=== PATIENT | female | born 1995 | race Caucasian/White ===

== ENCOUNTER 2019-01-31 18:25 | Inpatient (IN) | payer OTHER ==
[2019-01-31] MEDS ORDERED: Sodium Chloride 0.9% 10 ML Syringe FLUSH PRN (18:49)
[2019-01-31] MEDS ORDERED: Nalbuphine 10 MG/1 ML Vial IVPUSH PRN (18:49)
[2019-01-31] MEDS ORDERED: Misoprostol 100 MCG Tab VAG PRN (18:49)
--- NOTE | 2019-01-31 18:52 | PCM.LDHP ---
L&D History of Present Illness - General Date of Service: 01/31/19 Admit Problem/Dx: Patient Status Order with Admit Dx/Problem 01/31/19 18:49 Patient Status [ADT] Routine Admission Diagnosis/Problem Admission Diagnosis/Problem Post term Source of Information: Patient History Limitations: Reports: No Limitations - History of Present Illness Introduction:: Patient is a 23 y/o at 40 4/7 wks presents for IOL for dates. Doing well. Notes good FM. No contractions or signs of labor. 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 Para: 0 LMP (Approximate): Neurological History: Reports: Migraines Psychiatric History: Reports: ADD, Anxiety, Depression - Infectious Disease History Infectious Disease History: Reports: Other (See Below) (History of chlamydia and gonorrhea) - Past Surgical History HEENT Surgical History: Reports: Adenoidectomy, Tonsillectomy Musculoskeletal Surgical History: Reports: Ganglion Cyst, Other (See Below) ( hammer toe procedure) Social & Family History - Tobacco Use Smoking Status *Q: Former Smoker - Alcohol Use Alcohol Use History: No - Recreational Drug Use Recreational Drug Use: Yes Recreational Drug Type: Reports: Marijuana/Hashish, Methamphetamine H&P Review of Systems - Review of Systems: Review Of Systems: See Below General: Reports: No Symptoms Pulmonary: Reports: No Symptoms Cardiovascular: Reports: No Symptoms Gastrointestinal: Reports: No Symptoms Genitourinary: Reports: No Symptoms Musculoskeletal: Reports: No Symptoms Psychiatric: Reports: No Symptoms Neurological: Reports: No Symptoms L&D Exam - Exam Exam: See Below - OB Specific Contraction Intensity: Irritability Movement: Active Heart Tones: Present Heart Tones per Min: 140 Heart Rate (FHR) Variability: Moderate (6-25 bmp) Presentation: Vertex - Shultz Score Shultz Score Cervix Position: Posterior Shultz Score Consistency: Soft Shultz Score Effacement: 31-50% Shultz Score Dilation: Closed Shultz Score 's Station: -3 Shultz Score Total: 3 - Exam General: Alert, Oriented, Cooperative Lungs: Clear to Auscultation, Normal Respiratory Effort Cardiovascular: Regular Rate, Regular Rhythm GI/Abdominal Exam: Soft, Non-Tender Genitourinary: Normal external exam Extremities: Normal Inspection Skin: Warm, Dry, Intact - Patient Data Result Diagrams: 01/31/19 19:00 - Problem List (1) 40 weeks gestation of SNOMED Code(s): 87510973 ICD Code: Z3A.40 - 40 WEEKS GESTATION OF Status: Acute Current Visit: Yes (2) GBS (group B Streptococcus carrier), +RV culture, currently SNOMED Code(s): 5935759013254, 100983689, 4503399528617 ICD Code: O99.820 - STREPTOCOCCUS B CARRIER STATE COMPLICATING Status: Acute Current Visit: Yes (3) Methamphetamine abuse SNOMED Code(s): 680345163 ICD Code: F15.10 - OTHER STIMULANT ABUSE, UNCOMPLICATED Status: Acute Current Visit: Yes (4) Imprisonment and other incarceration SNOMED Code(s): 11718218 ICD Code: Z65.1 - IMPRISONMENT AND OTHER INCARCERATION Status: Acute Current Visit: Yes Problem List Initiated/Reviewed/Updated: Yes Orders Last 24hrs: Active Orders 24 hr Category Date Time Status Patient Status [ADT] Routine ADT 01/31/19 18:49 Ordered Activity as Tolerated [RC] PFP Care 01/31/19 18:49 Ordered Communication Order [RC] ASDIRECTED Care 01/31/19 18:49 Ordered Communication Order [RC] ASDIRECTED Care 01/31/19 18:49 Ordered Communication Order [RC] ASDIRECTED Care 01/31/19 18:49 Ordered Communication Order [RC] ASDIRECTED Care 01/31/19 18:49 Ordered Monitoring [RC] INTERMITTENT Care 01/31/19 18:49 Ordered Non Stress Test [RC] PER UNIT ROUTINE Care 01/31/19 18:49 Ordered Notify Provider [RC] ASDIRECTED Care 01/31/19 18:49 Ordered Notify Provider [RC] PRN Care 01/31/19 18:49 Ordered Peripheral IV Care [RC] . DIRECTED Care 01/31/19 18:50 Ordered Vaginal Exam [RC] ASDIRECTED Care 01/31/19 18:49 Ordered Vital Signs [RC] ASDIRECTED Care 01/31/19 18:49 Ordered Vital Signs [RC] PER UNIT ROUTINE Care 01/31/19 18:49 Ordered Regular Diet [DIET] Diet 01/31/19 Dinner Ordered CBC W/O DIFF,HEMOGRAM [HEME] Routine Lab 01/31/19 18:49 Ordered RAPID PLASMA REAGIN,RPR [CHEM] Routine Lab 01/31/19 18:49 Ordered TYPE AND SCREEN [BBK] Routine Lab 01/31/19 18:49 Ordered Lactated Ringers [Ringers, Lactated] 1,000 ml Med 01/31/19 19:00 Ordered IV ASDIRECTED Nalbuphine [Nubain] Med 01/31/19 18:49 Ordered 10 mg IVPUSH Q2H PRN Oxytocin/Lactated Ringers [Pitocin in LR 10 Units/1,000 Med 01/31/19 19:00 Ordered ML] 10 unit in 1,000 ml IV .CONTINUOUS Oxytocin/Lactated Ringers [Pitocin in LR 10 Units/1,000 Med 01/31/19 19:00 Ordered ML] 10 unit in 1,000 ml IV TITRATE Penicillin G Potassium [Pfizerpen] 2.5 millunits Med 02/01/19 07:00 Ordered Sodium Chloride 0.9% [Normal Saline] 100 ml IV Q4H Penicillin G Potassium [Pfizerpen] 5 millunits Med 02/01/19 03:00 Ordered Sodium Chloride 0.9% [Normal Saline] 100 ml IV ONETIME Sodium Chloride 0.9% [Saline Flush] Med 01/31/19 18:49 Ordered 10 ml FLUSH ASDIRECTED PRN miSOPROStol [Cytotec] Med 01/31/19 18:49 Ordered 25 mcg VAG Q4H PRN Electronic Heart Tones Internal [WOMSER] Per Unit Oth 01/31/19 18:49 Ordered Routine Peripheral IV Insertion Adult [OM.PC] Routine Oth 01/31/19 18:49 Ordered Resuscitation Status Routine Resus Stat 01/31/19 18:49 Ordered Assessment/Plan Comment:: 23 y/o at 40 4/7 wks presents for IOL for dates * Labs * Cytotec and luna bulb for IOL. Will switch to pitocin / AROM when able * GBS positive, will start PCN when more active * Incarcerated for drug abuse. UDS on admission. Collect cord segment after delivery * Pain management per patient preference * Anticipate
[2019-01-31] MEDS ORDERED: Oxytocin/Lactated Ringers 10 UNIT/1,000 ML BAG IV SCH ×2 (19:00)
[2019-01-31] MEDS ORDERED: Misoprostol 25 MCG (1/4 of 100 MCG) Tab ONE (19:02)
[2019-01-31] MEDS: Misoprostol 25 MCG (1/4 of 100 MCG) Tab VAG SCH ×2 (19:08→23:10)
[2019-01-31] MEDS ORDERED: Benzocaine 20% Dental Gel 30 GM Jar MUCMEM PRN (20:47)
[2019-01-31] MEDS: Acetaminophen 325 MG Tab PO PRN (21:03)
[2019-02-01] MEDS ORDERED: Bupivacaine 0.25% 10 ML SDV ONE
[2019-02-01] MEDS ORDERED: Penicillin G Potassium 5 MILLUNITS in Sodium Chloride 0.9% 100 ML IV SCH (03:00)
[2019-02-01] MEDS: Misoprostol 25 MCG (1/4 of 100 MCG) Tab VAG SCH (03:27)
[2019-02-01] MEDS: Lactated Ringers 1,000 ML IV SCH ×5 (03:56→18:08)
--- NOTE | 2019-02-01 06:42 | PCM.PNLD ---
Labor Progress Note - VS & Meds Vital Signs: Last Vital Signs Temp 37.4 C 01/31/19 19:30 Pulse 98 01/31/19 19:30 Resp 16 01/31/19 19:30 BP 139/89 01/31/19 19:30 Pulse Ox 97 01/31/19 19:30 Active Medications: Current Medications Acetaminophen (Tylenol) 650 mg PO Q4H PRN PRN Reason: Pain Last Admin: 01/31/19 21:03 Dose: 650 mg Benzocaine (Hurricaine 20% Gel) 0 gm MUCMEM ASDIRECTED PRN PRN Reason: toothache Last Admin: 01/31/19 21:21 Dose: 1 applic Lactated Ringer's (Ringers, Lactated) 1,000 mls @ 40 mls/hr IV ASDIRECTED SONIA Last Admin: 02/01/19 03:56 Dose: 40 mls/hr Oxytocin/Lactated Ringer's (Pitocin In Lr 10 Units/1,000 Ml) 10 unit in 1,000 mls @ 12 mls/hr IV TITRATE SONIA; Protocol Last Titration: 02/01/19 05:25 Dose: 8 munits/min, 48 mls/hr Oxytocin/Lactated Ringer's (Pitocin In Lr 10 Units/1,000 Ml) 10 unit in 1,000 mls @ 500 mls/hr IV .CONTINUOUS SONIA Penicillin G Potassium 2.5 (millunits/ Sodium Chloride) 100 mls @ 55 mls/hr IV Q4H SONIA Nalbuphine HCl (Nubain) 10 mg IVPUSH Q2H PRN PRN Reason: Pain Sodium Chloride (Saline Flush) 10 ml FLUSH ASDIRECTED PRN PRN Reason: Keep Vein Open Discontinued Medications Penicillin G Potassium 5 (millunits/ Sodium Chloride) 100 mls @ 55 mls/hr IV ONETIME SONIA Last Admin: 02/01/19 03:56 Dose: 55 mls/hr Misoprostol (Cytotec) Confirm Administered Dose 25 mcg .ROUTE .STK-MED ONE Stop: 01/31/19 19:03 Last Admin: 01/31/19 22:58 Dose: Not Given Misoprostol (Cytotec) 25 mcg VAG Q4H SONIA Stop: 02/01/19 03:01 Last Admin: 02/01/19 03:27 Dose: Not Given - Uterine Contractions Uterine Monitoring Mode: External [place] Contraction Intensity: Mild to Moderate - Monitoring Monitor Mode: External Ultrasound Heart Rate (FHR) Baseline: 135 Heart Rate (FHR) Variability: Moderate (6-25 bmp) Accelerations: Present, 15x15 Decelerations: None Strip Review: Category I - Vaginal Exam Dilation (cm): 3-4 Effacement (Percent): 50 Station: -2 Cervical Position: Midposition - Labor Progress (Free Text) Labor Progress: Doing well. S/p 2 doses of cytotec. Barr bulb out around 0300. Pitocin at 10. PCN previously started. AROM performed with release of clear fluid. Continue present management
[2019-02-01] MEDS ORDERED: Penicillin G Potassium 2.5 MILLUNITS in Sodium Chloride 0.9% 100 ML IV SCH (07:00)
[2019-02-01] MEDS ORDERED: diphenhydrAMINE 50 MG/ML SDV IVPUSH PRN ×2 (07:58→20:40)
[2019-02-01] MEDS ORDERED: ePHEDrine 50 MG/ML SDV IVPUSH PRN (07:58)
[2019-02-01] MEDS ORDERED: fentaNYL 100 MCG/2 ML SDV EPIDUR PRN (07:58)
[2019-02-01] MEDS ORDERED: Bupivacaine/fentaNYL/NS 100 ML Bag EPIDUR SCH (08:00)
[2019-02-01] MEDS: Penicillin G Potassium 2.5 MILLUNITS in Sodium Chloride 0.9% 100 ML IV SCH ×3 (08:20→16:54)
--- NOTE | 2019-02-01 09:42 | PCM.PREANE ---
Preanesthetic Assessment - Anesthesia/Transfusion/Family Hx Anesthesia History: Prior Anesthesia Without Reaction Family History of Anesthesia Reaction: No Transfusion History: No Prior Transfusion(s) - Review of Systems General: Fatigue Pulmonary: No Symptoms Cardiovascular: No Symptoms Gastrointestinal: Abdominal Pain (labor) Neurological: No Symptoms Other: Reports: None - Physical Assessment Vital Signs: Last Vital Signs Temp 37.4 C 01/31/19 19:30 Pulse 98 01/31/19 19:30 Resp 16 01/31/19 19:30 BP 139/89 01/31/19 19:30 Pulse Ox 97 01/31/19 19:30 Height: 1.6 m Weight: 93.44 kg ASA Class: 2 Mental Status: Alert & Oriented x3 Airway Class: Mallampati = 1 Dentition: Reports: Normal Dentition Thyro-Mental Finger Breadths: 3 Mouth Opening Finger Breadths: 3 ROM/Head Extension: Full Lungs: Clear to Auscultation, Normal Respiratory Effort Cardiovascular: Regular Rate, Regular Rhythm - Lab Values: Laboratory Last Values WBC 10.78 K/mm3 (3.98-10.04) H 01/31/19 19:00 RBC 3.35 M/mm3 (3.98-5.22) L 01/31/19 19:00 Hgb 10.3 gm/L (11.2-15.7) L 01/31/19 19:00 Hct 30.8 % (34.1-44.9) L 01/31/19 19:00 MCV 91.9 fl (79.4-94.8) 01/31/19 19:00 MCH 30.7 pg (25.6-32.2) 01/31/19 19:00 MCHC 33.4 g/dl (32.2-35.5) 01/31/19 19:00 RDW Std Deviation 43.0 fL (36.4-46.3) 01/31/19 19:00 Plt Count 304 K/mm3 (182-369) 01/31/19 19:00 MPV 8.8 fl (9.4-12.3) L 01/31/19 19:00 Urine Color Yellow (Yellow) 01/31/19 20:00 Urine Appearance Clear (Clear) 01/31/19 20:00 Urine pH 7.0 (5.0-8.0) 01/31/19 20:00 Ur Specific [place] 1.020 (1.005-1.030) 01/31/19 20:00 Urine Protein Negative (Negative) 01/31/19 20:00 Urine Glucose (UA) Negative (Negative) 01/31/19 20:00 Urine Ketones Negative (Negative) 01/31/19 20:00 Urine Occult Blood Negative (Negative) 01/31/19 20:00 Urine Nitrite Negative (Negative) 01/31/19 20:00 Urine Bilirubin Negative (Negative) 01/31/19 20:00 Urine Urobilinogen 0.2 (0.2-1.0) 01/31/19 20:00 Ur Leukocyte Esterase Negative (Negative) 01/31/19 20:00 Urine Opiates Screen Negative (KPEPFV=131) 01/31/19 20:00 Ur Buprenorphine Scrn Negative (CUTOFF=10) 01/31/19 20:00 Ur Oxycodone Screen Negative (GBW9GY=080) 01/31/19 20:00 Urine Methadone Screen Negative (FNZOZG=290) 01/31/19 20:00 Ur Propoxyphene Screen Negative (DIOQSH=266) 01/31/19 20:00 Ur Barbiturates Screen Negative (RDWYNN=443) 01/31/19 20:00 Ur Tricyclics Screen Negative (OELXID=010) 01/31/19 20:00 Ur Phencyclidine Scrn Negative (CUTOFF=25) 01/31/19 20:00 Ur Amphetamine Screen Negative (KTEDUU=758) 01/31/19 20:00 U Methamphetamines Scrn Negative (BYHGSR=786) 01/31/19 20:00 U Benzodiazepines Scrn Negative (APFYDG=956) 01/31/19 20:00 U Cocaine Metab Screen Negative (VBETSZ=418) 01/31/19 20:00 U Marijuana (THC) Screen Negative (CUTOFF=50) 01/31/19 20:00 RPR Non-reactive (NONREACTIVE) 01/31/19 19:00 MRSA (PCR) Negative 01/31/19 19:20 Blood Type AB POSITIVE 01/31/19 19:00 Gel Antibody Screen Negative 01/31/19 19:00 - Allergies Allergies/Adverse Reactions: Allergies Allergy/AdvReac Type Severity Reaction Status Date / Time nickel Allergy Rash Verified 01/31/19 19:46 - Anesthesia Plan Pre-Op Medication Ordered: None - Acknowledgements Anesthesia Type Planned: Epidural Pt an Appropriate Candidate for the Planned Anesthesia: Yes Alternatives and Risks of Anesthesia Discussed w Pt/Guardian: Yes Pt/Guardian Understands and Agrees with Anesthesia Plan: Yes PreAnesthesia Questionnaire Respiratory History: Reports: Asthma Gastrointestinal History: Reports: GERD USED [employer] History: Reports: Neurological History: Reports: Migraines Psychiatric History: Reports: ADD, Anxiety, Depression Dermatologic History: Reports: Urticaria - Infectious Disease History Infectious Disease History: Reports: Other (See Below) (History of chlamydia and gonorrhea) - Past Surgical History HEENT Surgical History: Reports: Adenoidectomy, Tonsillectomy Musculoskeletal Surgical History: Reports: Ganglion Cyst, Other (See Below) ( hammer toe procedure) - SUBSTANCE USE Smoking Status *Q: Former Smoker Tobacco Use Within Last Twelve Months: Cigarettes Second Hand Smoke Exposure: No Recreational Drug Use History: Yes Recreational Drug Type: Reports: Marijuana/Hashish, Methamphetamine - HOME MEDS Home Medications: Home Meds Acetaminophen [Tylenol] 325 mg PO Q4H PRN 01/31/19 [History] Pnv No.122/Iron/Folic Acid [ Multi Tablet] 1 each PO DAILY 01/31/19 [ History] diphenhydrAMINE HCl [Benadryl] 25 mg PO QID PRN 01/31/19 [History] - CURRENT (IN HOUSE) MEDS Current Meds: Current Medications Acetaminophen (Tylenol) 650 mg PO Q4H PRN PRN Reason: Pain Last Admin: 01/31/19 21:03 Dose: 650 mg Benzocaine (Hurricaine 20% Gel) 0 gm MUCMEM ASDIRECTED PRN PRN Reason: toothache Last Admin: 01/31/19 21:21 Dose: 1 applic Diphenhydramine HCl (Benadryl) 25 mg IVPUSH Q6H PRN PRN Reason: Itching Ephedrine Sulfate (Ephedrine Sulfate) 5 mg IVPUSH ASDIRECTED PRN PRN Reason: HYPOTENTSION Fentanyl (Sublimaze) 100 mcg EPIDUR Q3H PRN PRN Reason: Pain Last Admin: 02/01/19 09:40 Dose: 100 mcg Fentanyl/Bupivacaine HCl (Fentanyl/Bupivacaine/Ns 2 Mcg-0.125% 100 Ml) 100 ml EPIDUR ASDIRECTED SONIA Last Admin: 02/01/19 09:40 Dose: 100 ml Lactated Ringer's (Ringers, Lactated) 1,000 mls @ 40 mls/hr IV ASDIRECTED SONIA Last Admin: 02/01/19 03:56 Dose: 40 mls/hr Oxytocin/Lactated Ringer's (Pitocin In Lr 10 Units/1,000 Ml) 10 unit in 1,000 mls @ 12 mls/hr IV TITRATE SONIA; Protocol Last Titration: 02/01/19 07:40 Dose: 12 munits/min, 72 mls/hr Oxytocin/Lactated Ringer's (Pitocin In Lr 10 Units/1,000 Ml) 10 unit in 1,000 mls @ 500 mls/hr IV .CONTINUOUS SONIA Penicillin G Potassium 2.5 (millunits/ Sodium Chloride) 100 mls @ 55 mls/hr IV Q4H [facility] Last Admin: 02/01/19 08:20 Dose: 55 mls/hr Nalbuphine HCl (Nubain) 10 mg IVPUSH Q2H PRN PRN Reason: Pain Sodium Chloride (Saline Flush) 10 ml FLUSH ASDIRECTED PRN PRN Reason: Keep Vein Open Discontinued Medications Penicillin G Potassium 5 (millunits/ Sodium Chloride) 100 mls @ 55 mls/hr IV ONETIME SONIA Last Admin: 02/01/19 03:56 Dose: 55 mls/hr Misoprostol (Cytotec) Confirm Administered Dose 25 mcg .ROUTE .STK-MED ONE Stop: 01/31/19 19:03 Last Admin: 01/31/19 22:58 Dose: Not Given Misoprostol (Cytotec) 25 mcg VAG Q4H SONIA Stop: 02/01/19 03:01 Last Admin: 02/01/19 03:27 Dose: Not Given
--- NOTE | 2019-02-01 11:33 | PCM.PNLD ---
Labor Progress Note - VS & Meds Vital Signs: Last Vital Signs Temp 37.4 C 01/31/19 19:30 Pulse 98 01/31/19 19:30 Resp 16 01/31/19 19:30 BP 139/89 01/31/19 19:30 Pulse Ox 97 01/31/19 19:30 Active Medications: Current Medications Acetaminophen (Tylenol) 650 mg PO Q4H PRN PRN Reason: Pain Last Admin: 01/31/19 21:03 Dose: 650 mg Benzocaine (Hurricaine 20% Gel) 0 gm MUCMEM ASDIRECTED PRN PRN Reason: toothache Last Admin: 01/31/19 21:21 Dose: 1 applic Diphenhydramine HCl (Benadryl) 25 mg IVPUSH Q6H PRN PRN Reason: Itching Ephedrine Sulfate (Ephedrine Sulfate) 5 mg IVPUSH ASDIRECTED PRN PRN Reason: HYPOTENTSION Last Admin: 02/01/19 09:45 Dose: 10 mg Fentanyl (Sublimaze) 100 mcg EPIDUR Q3H PRN PRN Reason: Pain Last Admin: 02/01/19 09:40 Dose: 100 mcg Fentanyl/Bupivacaine HCl (Fentanyl/Bupivacaine/Ns 2 Mcg-0.125% 100 Ml) 100 ml EPIDUR ASDIRECTED SONIA Last Admin: 02/01/19 09:40 Dose: 100 ml Lactated Ringer's (Ringers, Lactated) 1,000 mls @ 40 mls/hr IV ASDIRECTED SONIA Last Admin: 02/01/19 10:31 Dose: 40 mls/hr Oxytocin/Lactated Ringer's (Pitocin In Lr 10 Units/1,000 Ml) 10 unit in 1,000 mls @ 12 mls/hr IV TITRATE SONIA; Protocol Last Titration: 02/01/19 10:00 Dose: 6 munits/min, 36 mls/hr Oxytocin/Lactated Ringer's (Pitocin In Lr 10 Units/1,000 Ml) 10 unit in 1,000 mls @ 500 mls/hr IV .CONTINUOUS SONIA Penicillin G Potassium 2.5 (millunits/ Sodium Chloride) 100 mls @ 55 mls/hr IV Q4H SONIA Last Admin: 02/01/19 08:20 Dose: 55 mls/hr Nalbuphine HCl (Nubain) 10 mg IVPUSH Q2H PRN PRN Reason: Pain Sodium Chloride (Saline Flush) 10 ml FLUSH ASDIRECTED PRN PRN Reason: Keep Vein Open Discontinued Medications Penicillin G Potassium 5 (millunits/ Sodium Chloride) 100 mls @ 55 mls/hr IV ONETIME [facility] Last Admin: 02/01/19 03:56 Dose: 55 mls/hr Misoprostol (Cytotec) Confirm Administered Dose 25 mcg .ROUTE .STK-MED ONE Stop: 01/31/19 19:03 Last Admin: 01/31/19 22:58 Dose: Not Given Misoprostol (Cytotec) 25 mcg VAG Q4H [facility] Stop: 02/01/19 03:01 Last Admin: 02/01/19 03:27 Dose: Not Given - Uterine Contractions Uterine Monitoring Mode: External [place] Contraction Intensity: Moderate - Monitoring Monitor Mode: External Ultrasound Heart Rate (FHR) Baseline: 140 Heart Rate (FHR) Variability: Moderate (6-25 bmp) Accelerations: Present, 15x15 Decelerations: Variable Strip Review: Category II - Vaginal Exam Dilation (cm): 3-4 Effacement (Percent): 50 Station: -2 Cervical Position: Midposition - Labor Progress (Free Text) Labor Progress: Patient now comfortable with epidural. IUPC placed to aid in facility of pitocin augmentation. Continue management otherwise
--- NOTE | 2019-02-01 16:58 | PCM.PNLD ---
Labor Progress Note - VS & Meds Vital Signs: Last Vital Signs Temp 37.4 C 01/31/19 19:30 Pulse 98 01/31/19 19:30 Resp 16 01/31/19 19:30 BP 139/89 01/31/19 19:30 Pulse Ox 99 02/01/19 07:58 Active Medications: Current Medications Acetaminophen (Tylenol) 650 mg PO Q4H PRN PRN Reason: Pain Last Admin: 01/31/19 21:03 Dose: 650 mg Benzocaine (Hurricaine 20% Gel) 0 gm MUCMEM ASDIRECTED PRN PRN Reason: toothache Last Admin: 01/31/19 21:21 Dose: 1 applic Diphenhydramine HCl (Benadryl) 25 mg IVPUSH Q6H PRN PRN Reason: Itching Ephedrine Sulfate (Ephedrine Sulfate) 5 mg IVPUSH ASDIRECTED PRN PRN Reason: HYPOTENTSION Last Admin: 02/01/19 09:45 Dose: 10 mg Fentanyl (Sublimaze) 100 mcg EPIDUR Q3H PRN PRN Reason: Pain Last Admin: 02/01/19 09:40 Dose: 100 mcg Fentanyl/Bupivacaine HCl (Fentanyl/Bupivacaine/Ns 2 Mcg-0.125% 100 Ml) 100 ml EPIDUR ASDIRECTED SONIA Last Admin: 02/01/19 09:40 Dose: 100 ml Lactated Ringer's (Ringers, Lactated) 1,000 mls @ 40 mls/hr IV ASDIRECTED SONIA Last Admin: 02/01/19 15:18 Dose: 40 mls/hr Oxytocin/Lactated Ringer's (Pitocin In Lr 10 Units/1,000 Ml) 10 unit in 1,000 mls @ 12 mls/hr IV TITRATE SONIA; Protocol Last Titration: 02/01/19 16:40 Dose: 12 munits/min, 72 mls/hr Oxytocin/Lactated Ringer's (Pitocin In Lr 10 Units/1,000 Ml) 10 unit in 1,000 mls @ 500 mls/hr IV .CONTINUOUS SONIA Penicillin G Potassium 2.5 (millunits/ Sodium Chloride) 100 mls @ 55 mls/hr IV Q4H SONIA Last Admin: 02/01/19 16:54 Dose: 55 mls/hr Nalbuphine HCl (Nubain) 10 mg IVPUSH Q2H PRN PRN Reason: Pain Sodium Chloride (Saline Flush) 10 ml FLUSH ASDIRECTED PRN PRN Reason: Keep Vein Open Discontinued Medications Penicillin G Potassium 5 (millunits/ Sodium Chloride) 100 mls @ 55 mls/hr IV ONETIME [facility] Last Admin: 02/01/19 03:56 Dose: 55 mls/hr Misoprostol (Cytotec) Confirm Administered Dose 25 mcg .ROUTE .STK-MED ONE Stop: 01/31/19 19:03 Last Admin: 01/31/19 22:58 Dose: Not Given Misoprostol (Cytotec) 25 mcg VAG Q4H [facility] Stop: 02/01/19 03:01 Last Admin: 02/01/19 03:27 Dose: Not Given - Uterine Contractions Uterine Monitoring Mode: External [place], IUPC Contraction Intensity: Moderate to Strong - Monitoring Monitor Mode: External Ultrasound Heart Rate (FHR) Baseline: 145 Heart Rate (FHR) Variability: Moderate (6-25 bmp) Accelerations: Present, 15x15 Decelerations: Early, Late (rare), Variable Strip Review: Category II - Vaginal Exam Dilation (cm): 4 Effacement (Percent): 70 Station: -1 Cervical Position: Midposition - Labor Progress (Free Text) Labor Progress: Small amounts of change. Pitocin at 10, will increase as able. Reassess again in a few hours.
[2019-02-01] MEDS: Acetaminophen 325 MG Tab PO PRN (17:17)
[2019-02-01] MEDS ORDERED: ceFAZolin 2 GM in Premix Bag 1 BAG IV ONE (19:18)
[2019-02-01] MEDS ORDERED: Metoclopramide 10 MG/2 ML SDV IVPUSH ONE (19:18)
[2019-02-01] MEDS ORDERED: Citric Acid/Sodium Citrate Solution 30 ML Cup PO ONE (19:18)
[2019-02-01] MEDS ORDERED: Nalbuphine 10 MG/1 ML Vial IVPUSH PRN (19:18)
[2019-02-01] MEDS ORDERED: Metoclopramide 10 MG/2 ML SDV ONE (19:25)
[2019-02-01] MEDS ORDERED: Citric Acid/Sodium Citrate Solution 30 ML Cup ONE (19:25)
--- NOTE | 2019-02-01 19:25 | PCM.SN ---
- Free Text/Narrative Note: 1900 Patient up to 14 of pitocin, but with then prolonged decelerations which then had pitocin decreased. SVE done and similar. Reviewed with patient that was 3- 4 when ruptured this AM at 0630 and now only to 4 cm about 12 hours later. While not in active labor it is concerning that there has not been slightly more change or descent. Also, contraction pattern has been adequate and when increasing pitocin we then get runs of decelerations. Gave patient option of continuing to push forward carefully to achieve vaginal delivery vs proceed with and she desires moving forward with which is felt to be reasonable. Will notify anesthesia, OR, and pediatric teams. Stefanie Mendoza MD
--- NOTE | 2019-02-01 19:26 | PCM.OPNOTE ---
- General Post-Op/Procedure Note Date of Surgery/Procedure: 02/01/19 Operative Procedure(s): Primary low trasverse Findings: Baby girl in a vertex presentation with weight of 7 lbs 3 oz and APGARS of 8 & 9. Normal appearance of the uterus, fallopian tubes, and ovaries. Pre Op Diagnosis: Failure to progress in 1st stage. NRFS - decelerations with augmenation. 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 Cord segment obtained. Placenta discarded Fluid Replacement, Intraop: 1,600 Output, Urine Amount: 125 EBL in mLs: 700 Complications: None Condition: Good Free Text/Narrative:: The risks, benefits, indications, potential complications, and alternatives were explained to the patient and informed consent obtained. After induction of anesthesia, the patient was placed in a supine position and then draped and prepped in the usual sterile manner. A Pfannenstiel incision was made and carried down through the subcutaneous tissue to the fascia. Fascial incision was made and extended transversely. The fascia was from the underlying rectus tissue superiorly and inferiorly. The peritoneum was identified and entered. Peritoneal incision was extended longitudinally. The utero-vesical peritoneal reflection was incised transversely and the bladder flap was bluntly freed from the lower uterine segment. A low transverse uterine incision was made sharply with a scalpel and extended bluntly in a cephalocaudad direction. A baby girl was delivered from a vertex presentation with APGARS as above. After the umbilical cord was clamped and cut cord blood was obtained for evaluation. The placenta was removed intact and appeared normal. The uterus was exteriorized and cleared of clots. The uterine outline, tubes and ovaries appeared normal. The uterine incision was closed with running locked sutures of 0 Vicryl. Hemostasis was obtained with a second imbricating layer of 0 vicryl and several interrupted sutures of 0 vicryl placed in figure of eight fashion. The uterus was then placed back into the abdomen. The infracolic gutters were cleared of blood clots. The fascia was then reapproximated with running sutures of 0 Vicryl. The subcutaneous tissue was irrigated with sterile warm normal saline, hemostasis obtained with cautery. The skin was reapproximated with running Subcuticular 4 -0 monocryl sutures. Instrument, sponge, and needle counts were correct prior the abdominal closure and at the conclusion of the case.
[2019-02-01] MEDS ORDERED: Lidocaine 2% with EPINEPHrine 1:200,000 20 ML SDV ONE (19:27)
[2019-02-01] MEDS ORDERED: Morphine PF 10 MG/10 ML SDV ONE (19:27)
[2019-02-01] MEDS ORDERED: Azithromycin 500 MG Vial ONE (19:42)
[2019-02-01] MEDS ORDERED: Sodium Chloride 0.9% 250 ML ONE (19:44)
[2019-02-01] MEDS ORDERED: ceFAZolin 1 GM Vial ONE (19:50)
[2019-02-01] MEDS ORDERED: Oxytocin 10 Units/1 ML SDV ONE (19:59)
[2019-02-01] MEDS ORDERED: Ketorolac 30 MG/ML SDV ONE (20:04)
[2019-02-01] MEDS ORDERED: Lactated Ringers 1,000 ML ONE (20:31)
--- NOTE | 2019-02-01 20:41 | PCM.POSTAN ---
POST ANESTHESIA ASSESSMENT - MENTAL STATUS Mental Status: Alert, Oriented - VITAL SIGNS Vital Signs: Last Vital Signs Temp 37.4 C 01/31/19 19:30 Pulse 98 01/31/19 19:30 Resp 16 01/31/19 19:30 BP 139/89 01/31/19 19:30 Pulse Ox 99 02/01/19 07:58 - RESPIRATORY Respiratory Status: Respiratory Rate WNL, Airway Patent, O2 Saturation Stable - CARDIOVASCULAR CV Status: Pulse Rate WNL, Blood Pressure Stable - GASTROINTESTINAL GI Status: No Symptoms - PAIN Pain Score: 0 - POST OP HYDRATION Hydration Status: Adequate & Stable - OBSERVATIONS Free Text/Narrative:: no anesthesia complications noted
[2019-02-01] MEDS ORDERED: Naloxone 0.4 MG/ML SDV IVPUSH PRN (21:54)
[2019-02-01] MEDS ORDERED: Lanolin 100% Cream 7 GM Tube TOP PRN (21:54)
[2019-02-01] MEDS ORDERED: Docusate Sodium 100 MG Cap PO PRN (21:54)
[2019-02-01] MEDS ORDERED: Dextrose 5%-Lactated Ringers 1,000 ML IV SCH (21:54)
[2019-02-02] MEDS: Acetaminophen/oxyCODONE 325-5 MG Tab PO PRN ×2 (00:09→18:29)
[2019-02-02] MEDS: Ketorolac 30 MG/ML SDV IVPUSH SCH ×3 (02:39→14:32)
--- NOTE | 2019-02-02 07:17 | PCM.PNPP ---
- General Info Date of Service: 02/02/19 Functional Status: Reports: Pain Controlled, Tolerating Diet, Ambulating - Review of Systems General: Reports: No Symptoms Pulmonary: Reports: No Symptoms Cardiovascular: Reports: No Symptoms Gastrointestinal: Reports: Abdominal Pain (managed with medication ) Genitourinary: Reports: No Symptoms Musculoskeletal: Reports: No Symptoms Neurological: Reports: No Symptoms - Patient Data Vital Signs - Most Recent: Last Vital Signs Temp 37.1 C 02/02/19 03:31 Pulse 112 H 02/02/19 03:31 Resp 18 02/02/19 03:31 BP 111/60 02/02/19 03:31 Pulse Ox 96 02/02/19 03:31 Weight - Most Recent: 93.44 kg I&O - Last 24 Hours: Intake & Output 02/01/19 02/02/19 02/02/19 22:59 06:59 14:59 Intake Total 8500 Output Total 1450 1500 Balance 7050 -1500 Lab Results - Last 24 Hours: Laboratory Results - last 24 hr 02/02/19 Range/Units 05:32 WBC 14.33 H (3.98-10.04) K/mm3 RBC 2.81 L (3.98-5.22) M/mm3 Hgb 8.6 L D (11.2-15.7) gm/L Hct 26.1 L (34.1-44.9) % MCV 92.9 (79.4-94.8) fl MCH 30.6 (25.6-32.2) pg MCHC 33.0 (32.2-35.5) g/dl RDW Std Deviation 42.1 (36.4-46.3) fL Plt Count 258 (182-369) K/mm3 MPV 9.0 L (9.4-12.3) fl Med Orders - Current: Current Medications Diphenhydramine HCl (Benadryl) 25 mg IVPUSH Q6H PRN PRN Reason: Itching Last Admin: 02/02/19 04:54 Dose: 25 mg Docusate Sodium (Colace) 100 mg PO Q12H PRN PRN Reason: Constipation Emollient Ointment (Lansinoh Hpa) 0 gm TOP ASDIRECTED PRN PRN Reason: Sore Nipples Ibuprofen (Motrin) 600 mg PO Q6H PRN PRN Reason: mild pain or fever Ketorolac Tromethamine (Toradol) 30 mg IVPUSH Q6H [facility] Stop: 02/02/19 14:31 Last Admin: 02/02/19 02:39 Dose: 30 mg Naloxone HCl (Narcan) 0.1 mg IVPUSH SEECOMMENT PRN PRN Reason: Respiratory Depression Oxycodone/Acetaminophen (Percocet 325-5 Mg) 2 tab PO Q4H PRN PRN Reason: Pain (moderate 4-6) Last Admin: 02/02/19 00:09 Dose: 2 tab Discontinued Medications Acetaminophen (Tylenol) 650 mg PO Q4H PRN PRN Reason: Pain Last Admin: 02/01/19 17:17 Dose: 650 mg Azithromycin (Zithromax) Confirm Administered Dose 500 mg .ROUTE .STK-MED ONE Stop: 02/01/19 19:43 Benzocaine (Hurricaine 20% Gel) 0 gm MUCMEM ASDIRECTED PRN PRN Reason: toothache Last Admin: 01/31/19 21:21 Dose: 1 applic Cefazolin Sodium (Ancef) Confirm Administered Dose 2 gm .ROUTE .STK-MED ONE Stop: 02/01/19 19:51 Citric Acid/Sodium Citrate (Bicitra Solution) 30 ml PO ONETIME ONE Stop: 02/01/19 19:19 Last Admin: 02/01/19 19:33 Dose: 30 ml Citric Acid/Sodium Citrate (Bicitra Solution) Confirm Administered Dose 30 ml .ROUTE .STK-MED ONE Stop: 02/01/19 19:26 Last Admin: 02/01/19 19:41 Dose: Not Given Diphenhydramine HCl (Benadryl) 25 mg IVPUSH Q6H PRN PRN Reason: Itching Ephedrine Sulfate (Ephedrine Sulfate) 5 mg IVPUSH ASDIRECTED PRN PRN Reason: HYPOTENTSION Last Admin: 02/01/19 09:45 Dose: 10 mg Fentanyl (Sublimaze) 100 mcg EPIDUR Q3H PRN PRN Reason: Pain Last Admin: 02/01/19 09:40 Dose: 100 mcg Fentanyl/Bupivacaine HCl (Fentanyl/Bupivacaine/Ns 2 Mcg-0.125% 100 Ml) 100 ml EPIDUR ASDIRECTED SONIA Last Admin: 02/01/19 09:40 Dose: 100 ml Lactated Ringer's (Ringers, Lactated) 1,000 mls @ 40 mls/hr IV ASDIRECTED OSNIA Last Admin: 02/01/19 18:08 Dose: 40 mls/hr Oxytocin/Lactated Ringer's (Pitocin In Lr 10 Units/1,000 Ml) 10 unit in 1,000 mls @ 12 mls/hr IV TITRATE SONIA; Protocol Last Titration: 02/01/19 17:30 Dose: 14 munits/min, 84 mls/hr Oxytocin/Lactated Ringer's (Pitocin In Lr 10 Units/1,000 Ml) 10 unit in 1,000 mls @ 500 mls/hr IV .CONTINUOUS SONIA Penicillin G Potassium 5 (millunits/ Sodium Chloride) 100 mls @ 55 mls/hr IV ONETIME SONIA Last Admin: 02/01/19 03:56 Dose: 55 mls/hr Penicillin G Potassium 2.5 (millunits/ Sodium Chloride) 100 mls @ 55 mls/hr IV Q4H SONIA Last Admin: 02/01/19 16:54 Dose: 55 mls/hr Cefazolin Sodium/Dextrose 2 gm (/ Premix) 50 mls @ 100 mls/hr IV ONETIME ONE Stop: 02/01/19 19:47 Sodium Chloride (Normal Saline) Confirm Administered Dose 250 mls @ as directed .ROUTE .STK-MED ONE Stop: 02/01/19 19:45 Lactated Ringer's (Ringers, Lactated) Confirm Administered Dose 1,000 mls @ as directed .ROUTE .STK-MED ONE Stop: 02/01/19 20:32 Dextrose/Lactated Ringer's (Dextrose 5%-Lactated Ringers) 1,000 mls @ 125 mls/ hr IV ASDIRECTED SONIA Stop: 02/02/19 05:53 Last Admin: 02/01/19 22:06 Dose: 125 mls/hr Ketorolac Tromethamine (Toradol) Confirm Administered Dose 30 mg .ROUTE .STK- MED ONE Stop: 02/01/19 20:05 Lidocaine/Epinephrine (Xylocaine-Mpf 2%-Epi 1:200,000) Confirm Administered Dose 20 ml .ROUTE .STK-MED ONE Stop: 02/01/19 19:28 Metoclopramide HCl (Reglan) 10 mg IVPUSH ONETIME ONE Stop: 02/01/19 19:19 Last Admin: 02/01/19 19:29 Dose: 10 mg Metoclopramide HCl (Reglan) Confirm Administered Dose 10 mg .ROUTE .STK-MED ONE Stop: 02/01/19 19:26 Last Admin: 02/01/19 19:42 Dose: Not Given Misoprostol (Cytotec) Confirm Administered Dose 25 mcg .ROUTE .STK-MED ONE Stop: 01/31/19 19:03 Last Admin: 01/31/19 22:58 Dose: Not Given Misoprostol (Cytotec) 25 mcg VAG Q4H [facility]ON[facility] Stop: 02/01/19 03:01 Last Admin: 02/01/19 03:27 Dose: Not Given Morphine Sulfate (Duramorph Pf) Confirm Administered Dose 10 mg .ROUTE .STK-MED ONE Stop: 02/01/19 19:28 Nalbuphine HCl (Nubain) 10 mg IVPUSH Q2H PRN PRN Reason: Pain Nalbuphine HCl (Nubain) 10 mg IVPUSH Q2H PRN PRN Reason: Pain Oxytocin (Pitocin) Confirm Administered Dose 10 unit .ROUTE .STK-MED ONE Stop: 02/01/19 20:00 Sodium Chloride (Saline Flush) 10 ml FLUSH ASDIRECTED PRN PRN Reason: Keep Vein Open - Interaction Disposition, : [place] in Room with Family Interaction: Holding Infant Infant Feeding: Bottle Fed Infant - Recovery Exam Fundal Tone: Firm Fundal Level: At Umbilicus Fundal Placement: Midline Lochia Amount: Small Lochia Color: Rubra/Red Perineum Description: Intact, Minimal Bruising/Swelling Urinary Elimination: Indwelling Catheter - Exam General: Alert, Oriented, Cooperative Lungs: Clear to Auscultation, Normal Respiratory Effort Cardiovascular: Regular Rate, Regular Rhythm GI/Abdominal Exam: Soft, Tender (appropriate post op) Extremities: Normal Inspection Skin: Warm, Dry, Intact Wound/Incisions: Dressing Dry and Intact - Problem List & Annotations (1) 40 weeks gestation of SNOMED Code(s): 19345027 Code(s): Z3A.40 - 40 WEEKS GESTATION OF Status: Acute Current Visit: Yes (2) GBS (group B Streptococcus carrier), +RV culture, currently SNOMED Code(s): 2634991495423, 306841638, 5860589794191 Code(s): O99.820 - STREPTOCOCCUS B CARRIER STATE COMPLICATING Status: Acute Current Visit: Yes (3) Methamphetamine abuse SNOMED Code(s): 239130086 Code(s): F15.10 - OTHER STIMULANT ABUSE, UNCOMPLICATED Status: Acute Current Visit: Yes (4) Imprisonment and other incarceration SNOMED Code(s): 69975076 Code(s): Z65.1 - IMPRISONMENT AND OTHER INCARCERATION Status: Acute Current Visit: Yes - Problem List Review Problem List Initiated/Reviewed/Updated: Yes - My Orders Last 24 Hours: My Active Orders 02/01/19 19:18 Procedure Site Prep Instruct [RC] ASDIRECTED Verify Patient Consent Obtain [RC] PER UNIT ROUTINE 02/01/19 21:54 Activity as Tolerated [RC] .Routine Antiembolic Devices [RC] PER UNIT ROUTINE Communication Order [RC] PER UNIT ROUTINE Intake and Output [RC] Q4HR Notify Provider Intake and Out [RC] ASDIRECTED RT Incentive Spirometry [RC] Q2HWA Acetaminophen/oxyCODONE [Percocet 325-5 MG] 2 tab PO Q4H PRN Docusate Sodium [Colace] 100 mg PO Q12H PRN Lanolin [Lansinoh HPA] See Dose Instructions TOP ASDIRECTED PRN Naloxone [Narcan] 0.1 mg IVPUSH SEECOMMENT PRN Assess Lochia [WOMSER] Per Unit Routine Assess Uterine Involution [WOMSER] Per Unit Routine Breast Pump [WOMSER] Per Unit Routine Heat Therapy [OM.PC] Per Unit Routine Peripheral IV Discontinue [OM.PC] Routine Sequential Compression Device [OM.PC] Per Unit Routine 02/01/19 Dinner Regular Diet [DIET] 02/02/19 02:30 Ketorolac [Toradol] 30 mg IVPUSH Q6H 02/02/19 20:30 Ibuprofen [Motrin] 600 mg PO Q6H PRN 02/02/19 20:47 Urinary Catheter Removal [RC] Per Unit Routine - Assessment Assessment:: 23 y/o G1 now P1001 PPD#1 from [facility] at 40 5/7 wks - Plan Plan:: * Routine cares * Bottle feeding currently, but interested in starting pumping * Discharge home in 2 days
--- NOTE | 2019-02-02 07:54 | PCM48HPAN ---
Post Anesthesia Note - EVALUATION WITHIN 48HRS OF ANESTHETIC Vital Signs in Normal Range: Yes Patient Participated in Evaluation: Yes Respiratory Function Stable: Yes Airway Patent: Yes Cardiovascular Function Stable: Yes Hydration Status Stable: Yes Pain Control Satisfactory: Yes Nausea and Vomiting Control Satisfactory: Yes Mental Status Recovered: Yes Vital Signs: Last Vital Signs Temp 98.8 F 02/02/19 03:31 Pulse 112 H 02/02/19 03:31 Resp 18 02/02/19 03:31 BP 111/60 02/02/19 03:31 Pulse Ox 96 02/02/19 03:31
[2019-02-02] MEDS: Penicillin G Potassium 2.5 MILLUNITS in Sodium Chloride 0.9% 100 ML IV SCH (17:35)
[2019-02-02] MEDS ORDERED: Ibuprofen 600 MG Tab PO PRN (20:30)
[2019-02-03] MEDS: Acetaminophen/oxyCODONE 325-5 MG Tab PO PRN (06:10)
--- NOTE | 2019-02-03 06:49 | PCM.PNPP ---
- General Info Date of Service: 02/03/19 Functional Status: Reports: Pain Controlled, Tolerating Diet, Ambulating, Urinating - Review of Systems General: Reports: No Symptoms Pulmonary: Reports: No Symptoms Cardiovascular: Reports: No Symptoms Gastrointestinal: Reports: Abdominal Pain Genitourinary: Reports: No Symptoms Musculoskeletal: Reports: No Symptoms Neurological: Reports: No Symptoms - Patient Data Vital Signs - Most Recent: Last Vital Signs Temp 36.7 C 02/03/19 03:25 Pulse 104 H 02/03/19 03:25 Resp 16 02/03/19 03:25 BP 137/91 H 02/03/19 03:25 Pulse Ox 99 02/03/19 03:25 Weight - Most Recent: 93.44 kg I&O - Last 24 Hours: Intake & Output 02/02/19 02/02/19 02/03/19 14:59 22:59 06:59 Intake Total 120 360 Output Total 1550 600 Balance -1430 -240 Lab Results - Last 24 Hours: Laboratory Results - last 24 hr 02/02/19 Range/Units 05:32 WBC 14.33 H (3.98-10.04) K/mm3 RBC 2.81 L (3.98-5.22) M/mm3 Hgb 8.6 L D (11.2-15.7) gm/L Hct 26.1 L (34.1-44.9) % MCV 92.9 (79.4-94.8) fl MCH 30.6 (25.6-32.2) pg MCHC 33.0 (32.2-35.5) g/dl RDW Std Deviation 42.1 (36.4-46.3) fL Plt Count 258 (182-369) K/mm3 MPV 9.0 L (9.4-12.3) fl Med Orders - Current: Current Medications Diphenhydramine HCl (Benadryl) 25 mg IVPUSH Q6H PRN PRN Reason: Itching Last Admin: 02/02/19 04:54 Dose: 25 mg Docusate Sodium (Colace) 100 mg PO Q12H PRN PRN Reason: Constipation Emollient Ointment (Lansinoh Hpa) 0 gm TOP ASDIRECTED PRN PRN Reason: Sore Nipples Ibuprofen (Motrin) 600 mg PO Q6H PRN PRN Reason: mild pain or fever Naloxone HCl (Narcan) 0.1 mg IVPUSH SEECOMMENT PRN PRN Reason: Respiratory Depression Oxycodone/Acetaminophen (Percocet 325-5 Mg) 2 tab PO Q4H PRN PRN Reason: Pain (moderate 4-6) Last Admin: 02/03/19 06:10 Dose: 2 tab Discontinued Medications Acetaminophen (Tylenol) 650 mg PO Q4H PRN PRN Reason: Pain Last Admin: 02/01/19 17:17 Dose: 650 mg Azithromycin (Zithromax) Confirm Administered Dose 500 mg .ROUTE .STK-MED ONE Stop: 02/01/19 19:43 Benzocaine (Hurricaine 20% Gel) 0 gm MUCMEM ASDIRECTED PRN PRN Reason: toothache Last Admin: 01/31/19 21:21 Dose: 1 applic Bupivacaine HCl (Sensorcaine-Mpf 0.25%) 10 ml .ROUTE .STK-MED ONE Stop: 02/01/19 00:01 Cefazolin Sodium (Ancef) Confirm Administered Dose 2 gm .ROUTE .STK-MED ONE Stop: 02/01/19 19:51 Citric Acid/Sodium Citrate (Bicitra Solution) 30 ml PO ONETIME ONE Stop: 02/01/19 19:19 Last Admin: 02/01/19 19:33 Dose: 30 ml Citric Acid/Sodium Citrate (Bicitra Solution) Confirm Administered Dose 30 ml .ROUTE .STK-MED ONE Stop: 02/01/19 19:26 Last Admin: 02/01/19 19:41 Dose: Not Given Diphenhydramine HCl (Benadryl) 25 mg IVPUSH Q6H PRN PRN Reason: Itching Ephedrine Sulfate (Ephedrine Sulfate) 5 mg IVPUSH ASDIRECTED PRN PRN Reason: HYPOTENTSION Last Admin: 02/01/19 09:45 Dose: 10 mg Fentanyl (Sublimaze) 100 mcg EPIDUR Q3H PRN PRN Reason: Pain Last Admin: 02/01/19 09:40 Dose: 100 mcg Fentanyl/Bupivacaine HCl (Fentanyl/Bupivacaine/Ns 2 Mcg-0.125% 100 Ml) 100 ml EPIDUR ASDIRECTED SONIA Last Admin: 02/01/19 09:40 Dose: 100 ml Lactated Ringer's (Ringers, Lactated) 1,000 mls @ 40 mls/hr IV ASDIRECTED SONIA Last Admin: 02/01/19 18:08 Dose: 40 mls/hr Oxytocin/Lactated Ringer's (Pitocin In Lr 10 Units/1,000 Ml) 10 unit in 1,000 mls @ 12 mls/hr IV TITRATE SONIA; Protocol Last Titration: 02/01/19 17:30 Dose: 14 munits/min, 84 mls/hr Oxytocin/Lactated Ringer's (Pitocin In Lr 10 Units/1,000 Ml) 10 unit in 1,000 mls @ 500 mls/hr IV .CONTINUOUS SONIA Penicillin G Potassium 5 (millunits/ Sodium Chloride) 100 mls @ 55 mls/hr IV ONETIME [facility] Last Admin: 02/01/19 03:56 Dose: 55 mls/hr Penicillin G Potassium 2.5 (millunits/ Sodium Chloride) 100 mls @ 55 mls/hr IV Q4H [facility] Last Admin: 02/02/19 17:35 Dose: Not Given Cefazolin Sodium/Dextrose 2 gm (/ Premix) 50 mls @ 100 mls/hr IV ONETIME ONE Stop: 02/01/19 19:47 Last Admin: 02/02/19 17:34 Dose: Not Given Sodium Chloride (Normal Saline) Confirm Administered Dose 250 mls @ as directed .ROUTE .STK-MED ONE Stop: 02/01/19 19:45 Lactated Ringer's (Ringers, Lactated) Confirm Administered Dose 1,000 mls @ as directed .ROUTE .STK-MED ONE Stop: 02/01/19 20:32 Dextrose/Lactated Ringer's (Dextrose 5%-Lactated Ringers) 1,000 mls @ 125 mls/ hr IV ASDIRECTED SONIA Stop: 02/02/19 05:53 Last Admin: 02/01/19 22:06 Dose: 125 mls/hr Ketorolac Tromethamine (Toradol) Confirm Administered Dose 30 mg .ROUTE .STK- MED ONE Stop: 02/01/19 20:05 Ketorolac Tromethamine (Toradol) 30 mg IVPUSH Q6H [facility] Stop: 02/02/19 14:31 Last Admin: 02/02/19 14:32 Dose: 30 mg Lidocaine/Epinephrine (Xylocaine-Mpf 2%-Epi 1:200,000) Confirm Administered Dose 20 ml .ROUTE .STK-MED ONE Stop: 02/01/19 19:28 Metoclopramide HCl (Reglan) 10 mg IVPUSH ONETIME ONE Stop: 02/01/19 19:19 Last Admin: 02/01/19 19:29 Dose: 10 mg Metoclopramide HCl (Reglan) Confirm Administered Dose 10 mg .ROUTE .STK-MED ONE Stop: 02/01/19 19:26 Last Admin: 02/01/19 19:42 Dose: Not Given Misoprostol (Cytotec) Confirm Administered Dose 25 mcg .ROUTE .STK-MED ONE Stop: 01/31/19 19:03 Last Admin: 01/31/19 22:58 Dose: Not Given Misoprostol (Cytotec) 25 mcg VAG Q4H [facility] Stop: 02/01/19 03:01 Last Admin: 02/01/19 03:27 Dose: Not Given Morphine Sulfate (Duramorph Pf) Confirm Administered Dose 10 mg .ROUTE .STK-MED ONE Stop: 02/01/19 19:28 Nalbuphine HCl (Nubain) 10 mg IVPUSH Q2H PRN PRN Reason: Pain Nalbuphine HCl (Nubain) 10 mg IVPUSH Q2H PRN PRN Reason: Pain Oxytocin (Pitocin) Confirm Administered Dose 10 unit .ROUTE .STK-MED ONE Stop: 02/01/19 20:00 Sodium Chloride (Saline Flush) 10 ml FLUSH ASDIRECTED PRN PRN Reason: Keep Vein Open - Infant Interaction Disposition, : in Room with Family Infant Interaction: Holding Infant Infant Feeding: Bottle Fed - Recovery Exam Fundal Tone: Firm Fundal Level: 1 Fingerbreadths Below Umbilicus Fundal Placement: Midline Lochia Amount: Scant, Small Lochia Color: Rubra/Red Perineum Description: Intact, Minimal Bruising/Swelling Episiotomy/Laceration: None Bladder Status: Voiding Urinary Elimination: Voided - Exam General: Alert, Oriented, Cooperative Lungs: Clear to Auscultation, Normal Respiratory Effort Cardiovascular: Regular Rate, Regular Rhythm GI/Abdominal Exam: Soft, Tender (appropriate post op) Extremities: Normal Inspection Skin: Warm, Dry, Intact Wound/Incisions: Healing Well, No Drainage Neurological: Reflexes Equal Bilateral - Problem List & Annotations (1) 40 weeks gestation of SNOMED Code(s): 22665383 Code(s): Z3A.40 - 40 WEEKS GESTATION OF Status: Acute Current Visit: Yes (2) GBS (group B Streptococcus carrier), +RV culture, currently SNOMED Code(s): 0837071992854, 955468194, 5881548558879 Code(s): O99.820 - STREPTOCOCCUS B CARRIER STATE COMPLICATING Status: Acute Current Visit: Yes (3) Methamphetamine abuse SNOMED Code(s): 536949540 Code(s): F15.10 - OTHER STIMULANT ABUSE, UNCOMPLICATED Status: Acute Current Visit: Yes (4) Imprisonment and other incarceration SNOMED Code(s): 93042386 Code(s): Z65.1 - IMPRISONMENT AND OTHER INCARCERATION Status: Acute Current Visit: Yes (5) Failure to progress in first stage of labor SNOMED Code(s): 659483504 Code(s): WOZ1149 - Status: Acute Current Visit: Yes (6) S/P primary low transverse SNOMED Code(s): 777357942, 10093970, 030688130, 928599628, 940850731 Code(s): Z98.891 - HISTORY OF UTERINE SCAR FROM PREVIOUS SURGERY Status: Acute Current Visit: Yes - Problem List Review Problem List Initiated/Reviewed/Updated: Yes - My Orders Last 24 Hours: My Active Orders 02/02/19 20:30 Ibuprofen [Motrin] 600 mg PO Q6H PRN - Assessment Assessment:: 23 y/o G1 now P1001 PPD#2 from [facility] at 40 5/7 wks - Plan Plan:: * Routine cares * Bottle feeding currently * BP's mild range overnight. Continue to monitor throughout the day. Exam otherwise reassuring * Discharge tomorrow likely
--- NOTE | 2019-02-03 16:55 | PCM.DCSUM1 ---
Discharge Summary - Discharge Data Discharge Date: 02/03/19 Discharge Disposition: Home, Self-Care 01 Condition: Good - Referral to Home Health Primary Care Physician: Stefanie Mendoza MD - Discharge Diagnosis/Problem(s) (1) 40 weeks gestation of SNOMED Code(s): 24750581 ICD Code: Z3A.40 - 40 WEEKS GESTATION OF Status: Acute (2) GBS (group B Streptococcus carrier), +RV culture, currently SNOMED Code(s): 0458429327236, 889833115, [id number] ICD Code: O99.820 - STREPTOCOCCUS B CARRIER STATE COMPLICATING Status: Acute (3) Methamphetamine abuse SNOMED Code(s): 314020450 ICD Code: F15.10 - OTHER STIMULANT ABUSE, UNCOMPLICATED Status: Acute (4) Imprisonment and other incarceration SNOMED Code(s): 16766999 ICD Code: Z65.1 - IMPRISONMENT AND OTHER INCARCERATION Status: Acute (5) Failure to progress in first stage of labor SNOMED Code(s): 325201596 ICD Code: NBL0205 - Status: Acute (6) S/P primary low transverse SNOMED Code(s): 839223098, 24188740, 685747723, 555502749, 581688228 ICD Code: Z98.891 - HISTORY OF UTERINE SCAR FROM PREVIOUS SURGERY Status: Acute - Patient Summary/Data Operative Procedure(s) Performed: Primary low trasverse Complications: None Consults: None Recommended Follow-up Testing/Procedures: Follow up in 1 week for incision check Hospital Course: 23 y/o at 40 4/7 wks presented for an elective IOL. This was done with cytotec and then AROM/pitocin. Patient never really became active and had runs of decelerations with augmentation making it challenging to increase medication further. When reviewing options of care patient did eventually agree to primary . This was uncomplicated. See operative note for full details. she did well and was discharged home on POD#2 - Patient Instructions Diet: Regular Diet as Tolerated Activity: No Lifting Over 10 Pounds Activity, Other: Pelvic Rest for 6 weeks Driving: Do Not Drive Showering/Bathing: May Shower, No Tub Bathing/Swimming Wound/Incision Care: Keep Operative Site/Wound Site Clean and Dry Notify Provider of: Fever, Increased Pain, Swelling and Redness, Drainage, Nausea and/or Vomiting - Discharge Plan *PRESCRIPTION DRUG MONITORING PROGRAM REVIEWED*: Not Applicable *COPY OF PRESCRIPTION DRUG MONITORING REPORT IN PATIENT AVRIL: Not Applicable Prescriptions/Med Rec: Acetaminophen [Tylenol] 650 mg PO Q4H PRN #60 tablet PRN Reason: Pain Docusate Sodium [Colace] 100 mg PO Q12H PRN #90 cap PRN Reason: Constipation Ibuprofen [Motrin] 600 mg PO Q6H PRN #60 tablet PRN Reason: mild pain or fever Home Medications: Home Meds Pnv No.122/Iron/Folic Acid [ Multi Tablet] 1 each PO DAILY 01/31/19 [ History] Acetaminophen [Tylenol] 650 mg PO Q4H PRN #60 tablet 02/03/19 [Rx] Docusate Sodium [Colace] 100 mg PO Q12H PRN #90 cap 02/03/19 [Rx] Ibuprofen [Motrin] 600 mg PO Q6H PRN #60 tablet 02/03/19 [Rx] Patient Handouts: Delivery, Care After, Home Care Instructions for Mom Referrals: Stefanie Mendoza MD [Primary Care Provider] - (1 week for post op check ) - Discharge Summary/Plan Comment DC Time >30 min.: No - Patient Data Vitals - Most Recent: Last Vital Signs Temp 36.7 C 02/03/19 14:21 Pulse 97 02/03/19 14:21 Resp 16 02/03/19 08:22 BP 118/79 02/03/19 14:21 Pulse Ox 99 02/03/19 14:21 Weight - Most Recent: 93.44 kg I&O - Last 24 hours: Intake & Output 02/03/19 02/03/19 02/03/19 06:59 14:59 22:59 Intake Total 120 120 Balance 120 120 Med Orders - Current: Current Medications Diphenhydramine HCl (Benadryl) 25 mg IVPUSH Q6H PRN PRN Reason: Itching Last Admin: 02/02/19 04:54 Dose: 25 mg Docusate Sodium (Colace) 100 mg PO Q12H PRN PRN Reason: Constipation Emollient Ointment (Lansinoh Hpa) 0 gm TOP ASDIRECTED PRN PRN Reason: Sore Nipples Ibuprofen (Motrin) 600 mg PO Q6H PRN PRN Reason: mild pain or fever Last Admin: 02/03/19 15:22 Dose: 600 mg Naloxone HCl (Narcan) 0.1 mg IVPUSH SEECOMMENT PRN PRN Reason: Respiratory Depression Oxycodone/Acetaminophen (Percocet 325-5 Mg) 2 tab PO Q4H PRN PRN Reason: Pain (moderate 4-6) Last Admin: 02/03/19 06:10 Dose: 2 tab Discontinued Medications Acetaminophen (Tylenol) 650 mg PO Q4H PRN PRN Reason: Pain Last Admin: 02/01/19 17:17 Dose: 650 mg Azithromycin (Zithromax) Confirm Administered Dose 500 mg .ROUTE .STK-MED ONE Stop: 02/01/19 19:43 Benzocaine (Hurricaine 20% Gel) 0 gm MUCMEM ASDIRECTED PRN PRN Reason: toothache Last Admin: 01/31/19 21:21 Dose: 1 applic Bupivacaine HCl (Sensorcaine-Mpf 0.25%) 10 ml .ROUTE .STK-MED ONE Stop: 02/01/19 00:01 Cefazolin Sodium (Ancef) Confirm Administered Dose 2 gm .ROUTE .STK-MED ONE Stop: 02/01/19 19:51 Citric Acid/Sodium Citrate (Bicitra Solution) 30 ml PO ONETIME ONE Stop: 02/01/19 19:19 Last Admin: 02/01/19 19:33 Dose: 30 ml Citric Acid/Sodium Citrate (Bicitra Solution) Confirm Administered Dose 30 ml .ROUTE .STK-MED ONE Stop: 02/01/19 19:26 Last Admin: 02/01/19 19:41 Dose: Not Given Diphenhydramine HCl (Benadryl) 25 mg IVPUSH Q6H PRN PRN Reason: Itching Ephedrine Sulfate (Ephedrine Sulfate) 5 mg IVPUSH ASDIRECTED PRN PRN Reason: HYPOTENTSION Last Admin: 02/01/19 09:45 Dose: 10 mg Fentanyl (Sublimaze) 100 mcg EPIDUR Q3H PRN PRN Reason: Pain Last Admin: 02/01/19 09:40 Dose: 100 mcg Fentanyl/Bupivacaine HCl (Fentanyl/Bupivacaine/Ns 2 Mcg-0.125% 100 Ml) 100 ml EPIDUR ASDIRECTED [facility] Last Admin: 02/01/19 09:40 Dose: 100 ml Lactated Ringer's (Ringers, Lactated) 1,000 mls @ 40 mls/hr IV ASDIRECTED SONIA Last Admin: 02/01/19 18:08 Dose: 40 mls/hr Oxytocin/Lactated Ringer's (Pitocin In Lr 10 Units/1,000 Ml) 10 unit in 1,000 mls @ 12 mls/hr IV TITRATE SONIA; Protocol Last Titration: 02/01/19 17:30 Dose: 14 munits/min, 84 mls/hr Oxytocin/Lactated Ringer's (Pitocin In Lr 10 Units/1,000 Ml) 10 unit in 1,000 mls @ 500 mls/hr IV .CONTINUOUS SONIA Penicillin G Potassium 5 (millunits/ Sodium Chloride) 100 mls @ 55 mls/hr IV ONETIME SONIA Last Admin: 02/01/19 03:56 Dose: 55 mls/hr Penicillin G Potassium 2.5 (millunits/ Sodium Chloride) 100 mls @ 55 mls/hr IV Q4H SONIA Last Admin: 02/02/19 17:35 Dose: Not Given Cefazolin Sodium/Dextrose 2 gm (/ Premix) 50 mls @ 100 mls/hr IV ONETIME ONE Stop: 02/01/19 19:47 Last Admin: 02/02/19 17:34 Dose: Not Given Sodium Chloride (Normal Saline) Confirm Administered Dose 250 mls @ as directed .ROUTE .STK-MED ONE Stop: 02/01/19 19:45 Lactated Ringer's (Ringers, Lactated) Confirm Administered Dose 1,000 mls @ as directed .ROUTE .STK-MED ONE Stop: 02/01/19 20:32 Dextrose/Lactated Ringer's (Dextrose 5%-Lactated Ringers) 1,000 mls @ 125 mls/ hr IV ASDIRECTED [facility] Stop: 02/02/19 05:53 Last Admin: 02/01/19 22:06 Dose: 125 mls/hr Ketorolac Tromethamine (Toradol) Confirm Administered Dose 30 mg .ROUTE .STK- MED ONE Stop: 02/01/19 20:05 Ketorolac Tromethamine (Toradol) 30 mg IVPUSH Q6H SONIA Stop: 02/02/19 14:31 Last Admin: 02/02/19 14:32 Dose: 30 mg Lidocaine/Epinephrine (Xylocaine-Mpf 2%-Epi 1:200,000) Confirm Administered Dose 20 ml .ROUTE .STK-MED ONE Stop: 02/01/19 19:28 Metoclopramide HCl (Reglan) 10 mg IVPUSH ONETIME ONE Stop: 02/01/19 19:19 Last Admin: 02/01/19 19:29 Dose: 10 mg Metoclopramide HCl (Reglan) Confirm Administered Dose 10 mg .ROUTE .STK-MED ONE Stop: 02/01/19 19:26 Last Admin: 02/01/19 19:42 Dose: Not Given Misoprostol (Cytotec) Confirm Administered Dose 25 mcg .ROUTE .STK-MED ONE Stop: 01/31/19 19:03 Last Admin: 01/31/19 22:58 Dose: Not Given Misoprostol (Cytotec) 25 mcg VAG Q4H SONIA Stop: 02/01/19 03:01 Last Admin: 02/01/19 03:27 Dose: Not Given Morphine Sulfate (Duramorph Pf) Confirm Administered Dose 10 mg .ROUTE .STK-MED ONE Stop: 02/01/19 19:28 Nalbuphine HCl (Nubain) 10 mg IVPUSH Q2H PRN PRN Reason: Pain Nalbuphine HCl (Nubain) 10 mg IVPUSH Q2H PRN PRN Reason: Pain Oxytocin (Pitocin) Confirm Administered Dose 10 unit .ROUTE .STK-MED ONE Stop: 02/01/19 20:00 Sodium Chloride (Saline Flush) 10 ml FLUSH ASDIRECTED PRN PRN Reason: Keep Vein Open
== END 2019-02-03 18:13 | disposition home or self-care (01) | DRG 787 ==
LOC: JD.OB 18:25 → EEVIPCON 18:25 → JD.OB 19:58 → OBSVTOIN 02-01 19:58 → JD.OB 02-01 19:58
PROVIDERS: ADMIT Obstetrics & Gynecology; ATTEND Obstetrics & Gynecology
PROC: 10D00Z1 Extraction of Products of Conception, Low, Open Approach (ICD-10-PCS; principal; 2019-02-01)
PROC: 10907ZC Drainage of Amniotic Fluid, Therapeutic from Products of Conception, Via Natural or Artificial Opening (ICD-10-PCS; 2019-02-01)
PROC: 4A1HXCZ Monitoring of Products of Conception, Cardiac Rate, External Approach (ICD-10-PCS; 2019-02-01)
PROC: 10H07YZ Insertion of Other Device into Products of Conception, Via Natural or Artificial Opening (ICD-10-PCS; 2019-02-01)
PROC: 3E0P7VZ Introduction of Hormone into Female Reproductive, Via Natural or Artificial Opening (ICD-10-PCS; 2019-02-01)
PROC: 3E033VJ Introduction of Other Hormone into Peripheral Vein, Percutaneous Approach (ICD-10-PCS; 2019-02-01)
DX: O62.0 Primary inadequate contractions (principal); O99.324 Drug use complicating childbirth; O48.0 Post-term pregnancy; O99.824 Streptococcus B carrier state complicating childbirth; F15.10 Other stimulant abuse, uncomplicated; O76 Abnormality in fetal heart rate and rhythm complicating labor and delivery; Z37.0 Single live birth; Z3A.40 40 weeks gestation of pregnancy; Z79.899 Other long term (current) drug therapy; Z88.8 Allergy status to other drugs, medicaments and biological substances; Z87.891 Personal history of nicotine dependence
CPT/HCPCS: 01961; 36415; 51702; 59025; 80306; 81003; 85027; 86592; 86850; 86900; 86901; 87641; A9270-GY; J0456; J0690; J1200; J1885; J2270; J2540; J2590; J2765; J3010; J3490; J7030; J7042; J7050; J7120

== ENCOUNTER 2019-02-09 23:23 | Inpatient (IN) | payer OTHER ==
[2019-02-09] MEDS ORDERED: Ondansetron 4 MG/2 ML SDV IVPUSH ONE (23:46)
[2019-02-09] MEDS ORDERED: Sodium Chloride 0.9% 1,000 ML IV STA (23:46)
[2019-02-09] MEDS ORDERED: HYDROmorphone 1 MG/ML Syringe IVPUSH ONE (23:48)
--- NOTE | 2019-02-09 23:53 | EDM.PDOC ---
ED HPI GENERAL MEDICAL PROBLEM - General Chief Complaint: Abdominal Pain Stated Complaint: PAIN FROM Time Seen by Provider: 02/09/19 23:33 Source of Information: Reports: Patient, Police History Limitations: Reports: No Limitations - History of Present Illness INITIAL COMMENTS - FREE TEXT/NARRATIVE: [facility] [place] for abdominal pain. This started on Thursday. She had a 8 days ago. She has pain to the right lower and right mid abdomen that radiates to her shoulder. Movement makes it worse. She has some nausea but no vomiting. She has some dysuria. She had a temp at the jail but none now. She has no cough, congestion or runny nose. She has no chest pain or shortness of breath. She still has her gallbladder and appendix. She still has some vaginal bleeding but it is not heavy. Onset: Gradual Duration: Day(s): (3) Location: Reports: Abdomen Quality: Reports: Sharp Severity: Moderate Improves with: Reports: Immobilization Worsens with: Reports: Movement Context: Reports: Other (Post 8 days ago). Denies: Trauma Associated Symptoms: Reports: Fever/Chills, Nausea/Vomiting. 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: Neurological History: Reports: Migraines Psychiatric History: Reports: ADD, ADHD, Anxiety, Depression Dermatologic History: Reports: Urticaria - Infectious Disease History Infectious Disease History: Reports: Chicken Pox, Other (See Below) - Past Surgical History HEENT Surgical History: Reports: Adenoidectomy, Oral Surgery, Tonsillectomy Female Surgical History: Reports: Section Musculoskeletal Surgical History: Reports: Ganglion Cyst, Other (See Below) Social & Family History - Family History Family Medical History: Noncontributory - Tobacco Use Smoking Status *Q: Former Smoker Used Tobacco, but Quit: Yes Month/Year Tobacco Last Used: 10/24/2017 - Caffeine Use Caffeine Use: Reports: Coffee, Soda - Recreational Drug Use Recreational Drug Use: Yes Recreational Drug Type: Reports: Methamphetamine ED ROS GENERAL - Review of Systems Review Of Systems: See Below Constitutional: Reports: Fever HEENT: Reports: No Symptoms Respiratory: Reports: No Symptoms Cardiovascular: Reports: No Symptoms Endocrine: Reports: No Symptoms GI/Abdominal: Reports: Abdominal Pain, Nausea. Denies: Diarrhea, Vomiting : Reports: Dysuria Musculoskeletal: Reports: No Symptoms Skin: Reports: No Symptoms ED EXAM, GI/ABD - Physical Exam Exam: See Below Exam Limited By: No Limitations General Appearance: Alert, No Apparent Distress Ears: Normal External Exam Nose: Normal Inspection Head: Atraumatic, Normocephalic Neck: Normal Inspection Respiratory/Chest: No Respiratory Distress, Lungs Clear, Normal Breath Sounds Cardiovascular: Regular Rate, Rhythm, No Edema, No Murmur GI/Abdominal Exam: Soft, No Organomegaly, No Mass, Tender (Moderate to severe tenderness to the right lower abdomen and right mid abdomen) Back Exam: Normal Inspection Extremities: Normal Inspection Course - Vital Signs Last Recorded V/S: Last Vital Signs Temp 97.7 F 02/09/19 23:29 Pulse 91 02/09/19 23:29 Resp 19 02/09/19 23:29 BP 150/82 H 02/09/19 23:29 Pulse Ox 99 02/09/19 23:29 - Orders/Labs/Meds Orders: Active Orders 24 hr Category Date Time Status Peripheral IV Care [RC] . DIRECTED Care 02/09/19 23:46 Active Abdomen Pelvis w Cont [CT] Stat Exams 02/09/19 23:46 Taken CULTURE GENITAL [RM] Stat Lab 02/10/19 03:48 Ordered Clindamycin Phosphate [Cleocin] 900 mg Med 02/10/19 03:58 Ordered Sodium Chloride 0.9% [Normal Saline] 100 ml IV ONETIME Gentamicin 430 mg Med 02/10/19 03:59 Ordered Sodium Chloride 0.9% [Normal Saline] 100 ml IV ONETIME Sodium Chloride 0.9% [Saline Flush] Med 02/09/19 23:46 Active 10 ml FLUSH ASDIRECTED PRN ED Antiemetic Medication Reflex [OM.PC] Stat Oth 02/09/19 23:46 Ordered Peripheral IV Insertion Adult [OM.PC] Stat Oth 02/09/19 23:46 Ordered Medication Orders Clindamycin Phosphate 900 mg/ (Sodium Chloride) 106 mls @ 200 mls/hr IV ONETIME ONE Stop: 02/10/19 04:29 Sodium Chloride (Saline Flush) 10 ml FLUSH ASDIRECTED PRN PRN Reason: Keep Vein Open Last Admin: 02/10/19 01:26 Dose: 10 ml Admin: 02/10/19 00:06 Dose: 10 ml Labs: Laboratory Tests 02/10/19 02/10/19 02/10/19 Range/Units 00:00 00:00 00:00 WBC 16.39 H (3.98-10.04) K/mm3 RBC 2.98 L (3.98-5.22) M/mm3 Hgb 9.1 L (11.2-15.7) gm/dl Hct 27.2 L (34.1-44.9) % MCV 91.3 (79.4-94.8) fl MCH 30.5 (25.6-32.2) pg MCHC 33.5 (32.2-35.5) g/dl RDW Std Deviation 40.1 (36.4-46.3) fL Plt Count 533 H D (182-369) K/mm3 MPV 8.2 L (9.4-12.3) fl Neut % (Auto) 81.4 H (34.0-71.1) % Lymph % (Auto) 9.9 L (19.3-51.7) % Humphreys % (Auto) 7.0 (4.7-12.5) % Eos % (Auto) 1.1 (0.7-5.8) Baso % (Auto) 0.1 (0.1-1.2) % Neut # (Auto) 13.34 H (1.56-6.13) K/mm3 Lymph # (Auto) 1.62 (1.18-3.74) K/mm3 Humphreys # (Auto) 1.14 H (0.24-0.36) K/mm3 Eos # (Auto) 0.18 (0.04-0.36) K/mm3 Baso # (Auto) 0.02 (0.01-0.08) K/mm3 Manual Slide Review Abnormal smear Sodium 138 (136-145) mEq/L Potassium 4.2 (3.5-5.1) mEq/L Chloride 107 (98-107) mEq/L Carbon Dioxide 21 (21-32) mEq/L Anion Gap 14.2 (5-15) BUN 10 (7-18) mg/dL Creatinine 0.6 (0.55-1.02) mg/dL Est Cr Clr Drug Dosing 120.63 mL/min Estimated GFR (MDRD) > 60 (>60) mL/min BUN/Creatinine Ratio 16.7 (14-18) Glucose 114 H (74-106) mg/dL Calcium 8.7 (8.5-10.1) mg/dL Total Bilirubin 0.2 (0.2-1.0) mg/dL AST 13 L (15-37) U/L ALT 20 (14-59) U/L Alkaline Phosphatase 96 (46-116) U/L Total Protein 7.2 (6.4-8.2) g/dl Albumin 2.6 L (3.4-5.0) g/dl Globulin 4.6 gm/dL Albumin/Globulin Ratio 0.6 L (1-2) Lipase 82 (73-393) U/L Urine Color Yellow (Yellow) Urine Appearance Clear (Clear) Urine pH 6.0 (5.0-8.0) Ur Specific [place] 1.025 (1.005-1.030) Urine Protein 1+ H (Negative) Urine Glucose (UA) Negative (Negative) Urine Ketones Trace H (Negative) Urine Occult Blood 3+ H (Negative) Urine Nitrite Negative (Negative) Urine Bilirubin Negative (Negative) Urine Urobilinogen 0.2 (0.2-1.0) Ur Leukocyte Esterase Trace H (Negative) Urine RBC 10-20 H (0-5) /hpf Urine WBC 0-5 (0-5) /hpf Ur Squamous Epith Cells 0-5 (0-5) /hpf Urine Bacteria Few (FEW) /hpf Urine Mucus Moderate H (FEW) /hpf Meds: Medications Generic Name Dose Route Start Last Admin Trade Name Freq PRN Reason Stop Dose Admin Clindamycin Phosphate 900 mg/ 106 mls @ 200 mls/hr 02/10/19 03:58 Sodium Chloride IV 02/10/19 04:29 ONETIME ONE Sodium Chloride 10 ml 02/09/19 23:46 02/10/19 01:26 Saline Flush FLUSH 10 ml ASDIRECTED PRN Administration Keep Vein Open Discontinued Medications Generic Name Dose Route Start Last Admin Trade Name Patrice PRN Reason Stop Dose Admin Diatrizoate Meglum/Diatrizoate Sod 90 ml 02/10/19 01:08 02/10/19 01:26 Gastrografin 37% PO 02/10/19 01:09 90 ml ONETIME ONE Administration Hydromorphone HCl 1 mg 02/09/19 23:48 02/10/19 00:05 Dilaudid IVPUSH 02/09/19 23:49 1 mg ONETIME ONE Administration Hydromorphone HCl 0.5 mg 02/10/19 03:20 02/10/19 03:31 Dilaudid IVPUSH 02/10/19 03:21 0.5 mg ONETIME ONE Administration Sodium Chloride 1,000 mls @ 1,000 mls/hr 02/09/19 23:46 02/10/19 00:03 Normal Saline IV 02/10/19 00:45 1,000 mls/hr .BOLUS STA Administration Iopamidol 100 ml 02/10/19 01:08 02/10/19 01:26 Isovue-300 (61%) IVPUSH 02/10/19 01:09 100 ml ONETIME ONE Administration Ondansetron HCl 4 mg 02/09/19 23:46 02/10/19 00:04 Zofran IVPUSH 02/09/19 23:47 4 mg ONETIME ONE Administration - Re-Assessments/Exams Free Text/Narrative Re-Assessment/Exam: 02/09/19 23:52 I ordered an IV NS 1L bolus, zofran 4mg IV, dilaudid 1mg IV, labs, UA and a CT of her abdomen and pelvis. 02/10/19 04:02 Her WBC was elevated at 16.39. Her WBC when she left the hospital on the was 14. Her Hgb was 9.1. Her CMP looks good. Her UA shows no UTI. Her CT shows extraperitoneal fat stranding and fluid anterior to the uterus and bladder. Correlation for recent surgery. No history provided. No CT findings of acute appendicitis. Enlarged uterus. I did a pelvic exam and she had dark blood and not a lot of bleeding but no real drainage noted. I did get a swab and I will do a culture. The CT did not show me a cause for the pain, WBC and fever. I am concerned this could be endometritis. She did have lots of pain with the exam but no real drainage. Diagnosis is not clear at this time. I called Dr Mendoza and she wanted me to start her on some clindamycin and gentamicin and she could admit her this morning and she will see the patient later. 02/10/19 04:10 Departure - Departure Time of Disposition: 04:10 Disposition: Refer to Observation Condition: Good Clinical Impression: Abdominal pain Qualifiers: Abdominal location: right lower quadrant Qualified Code(s): R10.31 - Right lower quadrant pain Fever Qualifiers: Fever type: unspecified Qualified Code(s): R50.9 - Fever, unspecified Leukocytosis Qualifiers: Leukocytosis type: unspecified Qualified Code(s): D72.829 - Elevated white blood cell count, unspecified - Discharge Information Referrals: PCP,Unknown [Ordering Only Provider] - Forms: ED Department Discharge - My Orders Last 24 Hours: My Active Orders 02/09/19 23:46 Peripheral IV Care [RC] . DIRECTED Abdomen Pelvis w Cont [CT] Stat Sodium Chloride 0.9% [Saline Flush] 10 ml FLUSH ASDIRECTED PRN ED Antiemetic Medication Reflex [OM.PC] Stat Peripheral IV Insertion Adult [OM.PC] Stat 02/10/19 03:48 CULTURE GENITAL [RM] Stat 02/10/19 03:58 Clindamycin Phosphate [Cleocin] 900 mg Sodium Chloride 0.9% [Normal Saline] 100 ml IV ONETIME 02/10/19 03:59 Gentamicin 430 mg Sodium Chloride 0.9% [Normal Saline] 100 ml IV ONETIME - Assessment/Plan Last 24 Hours: My Active Orders 02/09/19 23:46 Peripheral IV Care [RC] . DIRECTED Abdomen Pelvis w Cont [CT] Stat Sodium Chloride 0.9% [Saline Flush] 10 ml FLUSH ASDIRECTED PRN ED Antiemetic Medication Reflex [OM.PC] Stat Peripheral IV Insertion Adult [OM.PC] Stat 02/10/19 03:48 CULTURE GENITAL [RM] Stat 02/10/19 03:58 Clindamycin Phosphate [Cleocin] 900 mg Sodium Chloride 0.9% [Normal Saline] 100 ml IV ONETIME 02/10/19 03:59 Gentamicin 430 mg Sodium Chloride 0.9% [Normal Saline] 100 ml IV ONETIME
[2019-02-10] MEDS: Sodium Chloride 0.9% 10 ML Syringe FLUSH PRN ×2 (00:06→01:26)
[2019-02-10] MEDS ORDERED: Iopamidol 612 MG/ML 100 ML Bottle IVPUSH ONE (01:08)
[2019-02-10] MEDS ORDERED: Diatrizoate Meglumine/Diatrizoate Sodium 37% 120 ML Bottle PO ONE (01:08)
[2019-02-10] MEDS ORDERED: HYDROmorphone 0.5 MG/0.5 ML Syringe IVPUSH ONE (03:20)
[2019-02-10] MEDS ORDERED: Clindamycin Phosphate 900 MG in Sodium Chloride 0.9% 100 ML IV ONE ×2 (03:58→04:21)
[2019-02-10] MEDS ORDERED: Gentamicin 430 MG in Sodium Chloride 0.9% 100 ML IV ONE (03:59)
[2019-02-10] MEDS ORDERED: Sodium Chloride 0.9% 100 ML ONE (04:06)
[2019-02-10] MEDS ORDERED: Acetaminophen 325 MG Tab PO PRN (05:31)
[2019-02-10] MEDS ORDERED: Sodium Chloride 0.9% 10 ML Syringe FLUSH PRN (05:33)
[2019-02-10] MEDS ORDERED: HYDROmorphone 0.5 MG/0.5 ML Syringe IVPUSH PRN (05:35)
[2019-02-10] MEDS ORDERED: Ondansetron 4 MG/2 ML SDV IVPUSH PRN (05:36)
[2019-02-10] MEDS ORDERED: Gentamicin 40 MG/ML 2 ML Vial ONE (05:42)
--- NOTE | 2019-02-10 06:58 | PCM.HP.2 ---
H&P History of Present Illness - General Date of Service: 02/10/19 Admit Problem/Dx: Admission Diagnosis/Problem Admission Diagnosis/Problem Abdominal pain Source of Information: Patient History Limitations: Reports: No Limitations - History of Present Illness Initial Comments - Free Text/Narative: Patient is a 23 y/o woman who is POD#9 from [facility] for [facility]. Had been feeling well until a few days ago when began noting increasing abdominal pain on her right and general feelings of being unwell. Reports fever at [facility]al facility as well. Was seen in ED where labs showed an elevated WBC and CT scan was normal. Exam concerning for endometritis and so admitted. Currently doing relatively well. Pain better managed after receiving medications in ED. Right Abdomen Pain Score (Numeric/FACES): 9 - Related Data Allergies/Adverse Reactions: Allergies Allergy/AdvReac Type Severity Reaction Status Date / Time nickel Allergy Rash Verified 02/09/19 23:33 Home Medications: Home Meds Acetaminophen [Tylenol] 650 mg PO Q4H PRN #60 tablet 02/03/19 [Rx] Ibuprofen [Motrin] 600 mg PO Q6H PRN #60 tablet 02/03/19 [Rx] Benzocaine [Orajel Regular Strength] 1 appful TOP TID PRN 02/10/19 [History] Docusate Sodium [Colace] 100 mg PO Q12HR PRN 02/10/19 [History] Past Medical History Respiratory History: Reports: Asthma Gastrointestinal History: Reports: GERD : 1 Para: 1 Neurological History: Reports: Migraines Psychiatric History: Reports: ADD, ADHD, Anxiety, Depression Dermatologic History: Reports: Urticaria - Infectious Disease History Infectious Disease History: Reports: Chicken Pox, Other (See Below) - Past Surgical History HEENT Surgical History: Reports: Adenoidectomy, Oral Surgery, Tonsillectomy Female Surgical History: Reports: Section Musculoskeletal Surgical History: Reports: Ganglion Cyst, Other (See Below) Social & Family History - Family History Family Medical History: Noncontributory - Tobacco Use Smoking Status *Q: Former Smoker Used Tobacco, but Quit: Yes Month/Year Tobacco Last Used: 10/24/2017 - Caffeine Use Caffeine Use: Reports: Coffee, Soda - Recreational Drug Use Recreational Drug Use: Yes Recreational Drug Type: Reports: Methamphetamine H&P Review of Systems - Review of Systems: Review Of Systems: See Below General: Reports: Malaise Pulmonary: Reports: No Symptoms Cardiovascular: Reports: No Symptoms Gastrointestinal: Reports: Abdominal Pain Genitourinary: Reports: No Symptoms Musculoskeletal: Reports: Shoulder Pain Psychiatric: Reports: No Symptoms Neurological: Reports: No Symptoms Exam - Exam Exam: See Below - Vital Signs Vital Signs: Last Vital Signs Temp 36.5 C 02/09/19 23:29 Pulse 91 02/09/19 23:29 Resp 19 02/09/19 23:29 BP 150/82 H 02/09/19 23:29 Pulse Ox 99 02/09/19 23:29 Weight: 86.183 kg - Exam General: Alert, Oriented, Cooperative Lungs: Clear to Auscultation, Normal Respiratory Effort Cardiovascular: Regular Rate, Regular Rhythm GI/Abdominal Exam: Soft, Tender. No: Guarding, Rebound Extremities: Normal Inspection Skin: Warm, Dry, Intact - Patient Data Lab Results Last 24 hrs: Laboratory Results - last 24 hr 02/10/19 02/10/19 02/10/19 Range/Units 00:00 00:00 00:00 WBC 16.39 H (3.98-10.04) K/mm3 RBC 2.98 L (3.98-5.22) M/mm3 Hgb 9.1 L (11.2-15.7) gm/dl Hct 27.2 L (34.1-44.9) % MCV 91.3 (79.4-94.8) fl MCH 30.5 (25.6-32.2) pg MCHC 33.5 (32.2-35.5) g/dl RDW Std Deviation 40.1 (36.4-46.3) fL Plt Count 533 H D (182-369) K/mm3 MPV 8.2 L (9.4-12.3) fl Neut % (Auto) 81.4 H (34.0-71.1) % Lymph % (Auto) 9.9 L (19.3-51.7) % [place] % (Auto) 7.0 (4.7-12.5) % Eos % (Auto) 1.1 (0.7-5.8) Baso % (Auto) 0.1 (0.1-1.2) % Neut # (Auto) 13.34 H (1.56-6.13) K/mm3 Lymph # (Auto) 1.62 (1.18-3.74) K/mm3 [place] # (Auto) 1.14 H (0.24-0.36) K/mm3 Eos # (Auto) 0.18 (0.04-0.36) K/mm3 Baso # (Auto) 0.02 (0.01-0.08) K/mm3 Manual Slide Review Abnormal smear Sodium 138 (136-145) mEq/L Potassium 4.2 (3.5-5.1) mEq/L Chloride 107 (98-107) mEq/L Carbon Dioxide 21 (21-32) mEq/L Anion Gap 14.2 (5-15) BUN 10 (7-18) mg/dL Creatinine 0.6 (0.55-1.02) mg/dL Est Cr Clr Drug Dosing 120.63 mL/min Estimated GFR (MDRD) > 60 (>60) mL/min BUN/Creatinine Ratio 16.7 (14-18) Glucose 114 H (74-106) mg/dL Calcium 8.7 (8.5-10.1) mg/dL Total Bilirubin 0.2 (0.2-1.0) mg/dL AST 13 L (15-37) U/L ALT 20 (14-59) U/L Alkaline Phosphatase 96 (46-116) U/L Total Protein 7.2 (6.4-8.2) g/dl Albumin 2.6 L (3.4-5.0) g/dl Globulin 4.6 gm/dL Albumin/Globulin Ratio 0.6 L (1-2) Lipase 82 (73-393) U/L Urine Color Yellow (Yellow) Urine Appearance Clear (Clear) Urine pH 6.0 (5.0-8.0) Ur Specific [place] 1.025 (1.005-1.030) Urine Protein 1+ H (Negative) Urine Glucose (UA) Negative (Negative) Urine Ketones Trace H (Negative) Urine Occult Blood 3+ H (Negative) Urine Nitrite Negative (Negative) Urine Bilirubin Negative (Negative) Urine Urobilinogen 0.2 (0.2-1.0) Ur Leukocyte Esterase Trace H (Negative) Urine RBC 10-20 H (0-5) /hpf Urine WBC 0-5 (0-5) /hpf Ur Squamous Epith Cells 0-5 (0-5) /hpf Urine Bacteria Few (FEW) /hpf Urine Mucus Moderate H (FEW) /hpf MRSA (PCR) 02/10/19 Range/Units 05:03 WBC (3.98-10.04) K/mm3 RBC (3.98-5.22) M/mm3 Hgb (11.2-15.7) gm/dl Hct (34.1-44.9) % MCV (79.4-94.8) fl MCH (25.6-32.2) pg MCHC (32.2-35.5) g/dl RDW Std Deviation (36.4-46.3) fL Plt Count (182-369) K/mm3 MPV (9.4-12.3) fl Neut % (Auto) (34.0-71.1) % Lymph % (Auto) (19.3-51.7) % [place] % (Auto) (4.7-12.5) % Eos % (Auto) (0.7-5.8) Baso % (Auto) (0.1-1.2) % Neut # (Auto) (1.56-6.13) K/mm3 Lymph # (Auto) (1.18-3.74) K/mm3 [place] # (Auto) (0.24-0.36) K/mm3 Eos # (Auto) (0.04-0.36) K/mm3 Baso # (Auto) (0.01-0.08) K/mm3 Manual Slide Review Sodium (136-145) mEq/L Potassium (3.5-5.1) mEq/L Chloride (98-107) mEq/L Carbon Dioxide (21-32) mEq/L Anion Gap (5-15) BUN (7-18) mg/dL Creatinine (0.55-1.02) mg/dL Est Cr Clr Drug Dosing mL/min Estimated GFR (MDRD) (>60) mL/min BUN/Creatinine Ratio (14-18) Glucose (74-106) mg/dL Calcium (8.5-10.1) mg/dL Total Bilirubin (0.2-1.0) mg/dL AST (15-37) U/L ALT (14-59) U/L Alkaline Phosphatase (46-116) U/L Total Protein (6.4-8.2) g/dl Albumin (3.4-5.0) g/dl Globulin gm/dL Albumin/Globulin Ratio (1-2) Lipase (73-393) U/L Urine Color (Yellow) Urine Appearance (Clear) Urine pH (5.0-8.0) Ur Specific [place] (1.005-1.030) Urine Protein (Negative) Urine Glucose (UA) (Negative) Urine Ketones (Negative) Urine Occult Blood (Negative) Urine Nitrite (Negative) Urine Bilirubin (Negative) Urine Urobilinogen (0.2-1.0) Ur Leukocyte Esterase (Negative) Urine RBC (0-5) /hpf Urine WBC (0-5) /hpf Ur Squamous Epith Cells (0-5) /hpf Urine Bacteria (FEW) /hpf Urine Mucus (FEW) /hpf MRSA (PCR) Negative Result Diagrams: 02/10/19 00:00 02/10/19 00:00 - Problem List (1) Abdominal pain SNOMED Code(s): 80714608 ICD Code: R10.9 - UNSPECIFIED ABDOMINAL PAIN Status: Acute Current Visit : Yes Qualifiers: Abdominal location: right lower quadrant Qualified Code(s): R10.31 - Right lower quadrant pain (2) Leukocytosis SNOMED Code(s): 314658488, 856861427 ICD Code: D72.829 - ELEVATED WHITE BLOOD CELL COUNT, UNSPECIFIED Status: Acute Current Visit: Yes Qualifiers: Leukocytosis type: unspecified Qualified Code(s): D72.829 - Elevated white blood cell count, unspecified (3) S/P primary low transverse SNOMED Code(s): 782640506, 14263742, 399709613, 355117309, 277469993 ICD Code: Z98.891 - HISTORY OF UTERINE SCAR FROM PREVIOUS SURGERY Status: Acute Current Visit: No Problem List Initiated/Reviewed/Updated: Yes Orders Last 24hrs: Active Orders 24 hr Category Date Time Status Admission Status [Patient Status] [ADT] Routine ADT 02/10/19 04:06 Active Bedrest Bathroom Privileges [RC] ASDIRECTED Care 02/10/19 05:32 Active Pelvic Exam, Set Up [RC] ASDIRECTED Care 02/10/19 03:30 Active Peripheral IV Care [RC] Q4HR Care 02/09/19 23:46 Active Regular Diet [DIET] Diet 02/10/19 Breakfast Active Abdomen Pelvis w Cont [CT] Stat Exams 02/09/19 23:46 Taken CBC W/O DIFF,HEMOGRAM [HEME] AM Lab 02/11/19 05:11 Ordered CMP [COMPREHENSIVE METABOLIC PN,CMP] [CHEM] AM Lab 02/11/19 05:11 Ordered CULTURE GENITAL [RM] Stat Lab 02/10/19 03:56 Received Acetaminophen [Tylenol] Med 02/10/19 05:31 Active 975 mg PO Q4H PRN Acetaminophen/oxyCODONE [Percocet 325-5 MG] Med 02/10/19 06:53 Ordered 1 - 2 tab PO Q6H PRN Clindamycin Phosphate [Cleocin] 900 mg Med 02/10/19 12:00 Active Sodium Chloride 0.9% [Normal Saline] 100 ml IV Q8H Cyclobenzaprine [Flexeril] Med 02/10/19 06:53 Ordered 10 mg PO TID PRN HYDROmorphone [Dilaudid] Med 02/10/19 05:35 Active 0.5 mg IVPUSH Q2H PRN Ketorolac [Toradol] Med 02/10/19 07:00 Ordered 30 mg IVPUSH Q6H Ondansetron [Zofran] Med 02/10/19 05:36 Active 4 mg IVPUSH Q6H PRN Simethicone Med 02/10/19 06:53 Ordered 80 mg PO Q4H PRN Sodium Chloride 0.9% [Saline Flush] Med 02/09/19 23:46 Active 10 ml FLUSH ASDIRECTED PRN Sodium Chloride 0.9% [Saline Flush] Med 02/10/19 05:33 Active 10 ml FLUSH ASDIRECTED PRN Convert IV to Saline Lock [OM.PC] Routine Oth 02/10/19 05:33 Ordered ED Antiemetic Medication Reflex [OM.PC] Stat Oth 02/09/19 23:46 Ordered Peripheral IV Insertion Adult [OM.PC] Stat Oth 02/09/19 23:46 Ordered Resuscitation Status Routine Resus Stat 02/10/19 05:32 Ordered Medication Orders Acetaminophen (Tylenol) 975 mg PO Q4H PRN PRN Reason: Pain/Fever Cyclobenzaprine HCl (Flexeril) 10 mg PO TID PRN PRN Reason: Pain Hydromorphone HCl (Dilaudid) 0.5 mg IVPUSH Q2H PRN PRN Reason: Pain (severe 7-10) Last Admin: 02/10/19 06:06 Dose: 0.5 mg Clindamycin Phosphate 900 mg/ (Sodium Chloride) 106 mls @ 200 mls/hr IV Q8H SONIA Ketorolac Tromethamine (Toradol) 30 mg IVPUSH Q6H SONIA Stop: 02/10/19 19:01 Ondansetron HCl (Zofran) 4 mg IVPUSH Q6H PRN PRN Reason: Nausea/Vomiting Oxycodone/Acetaminophen (Percocet 325-5 Mg) 1 - 2 tab PO Q6H PRN PRN Reason: Abdominal Pain Simethicone (Simethicone) 80 mg PO Q4H PRN PRN Reason: Gas Sodium Chloride (Saline Flush) 10 ml FLUSH ASDIRECTED PRN PRN Reason: Keep Vein Open Last Admin: 02/10/19 01:26 Dose: 10 ml Admin: 02/10/19 00:06 Dose: 10 ml Sodium Chloride (Saline Flush) 10 ml FLUSH ASDIRECTED PRN PRN Reason: Keep Vein Open Assessment/Plan Comment:: 23 y/o POD#9/HD#1 admitted for concerns of post op/ endometritis * Continue clindamycin and gentamicin * Repeat labs in AM * Toradol scheduled, Flexeril and Percocet PRN * General diet * Encourage ambulation * Possible discharge tomorrow pending clinical course - Mortality Measure Prognosis:: Good
[2019-02-10] MEDS: Ketorolac 30 MG/ML SDV IVPUSH SCH ×3 (08:13→20:43)
[2019-02-10] MEDS: Simethicone 80 MG Tab.Chew PO PRN ×2 (08:24→21:05)
[2019-02-10] MEDS: Cyclobenzaprine 10 MG Tab PO PRN ×2 (09:01→17:44)
--- NOTE | 2019-02-10 10:57 | CT ---
CT abdomen and pelvis Technique: Multiple axial sections were obtained from above the dome of the diaphragm inferiorly through the pubic symphysis. Intravenous and oral contrast was utilized. Delayed images were also obtained through the abdomen and pelvis. Comparison: No prior abdominal imaging is available. Findings: Visualized lung bases show nothing acute. Liver shows no focal parenchymal abnormality. Gallbladder contains no calcified gallstones. Spleen appears within normal limits. Adrenal glands show no nodule. Kidneys show symmetric contrast enhancement without hydronephrosis or mass. Pancreas is within normal limits. Aorta shows no aneurysm. No retroperitoneal adenopathy or mesenteric abnormalities are seen. No pelvic mass or adenopathy is seen. Slight increased density noted anterior to the uterus which may relate to previous surgery. There is a thinned anterior rectus muscle causing bulging of the abdomen. Uterus is generous in size without definite focal abnormality. Appendix is felt to be visualized and is normal in size. Bone window settings were reviewed which show no acute osseous abnormality. Impression: 1. Enlarged uterus without focal abnormality compatible with . Increased density anterior to the uterus presumably due to previous section surgery. 2. Thinning of the rectus muscle causing anterior bulging of the abdominal wall. 3. Nothing acute is appreciated on CT study of the abdomen and pelvis. Diagnostic code #2 I agree with preliminary report from [facility], finalized on 02/10/19, 3:51 AM Central Time
[2019-02-10] MEDS: Clindamycin Phosphate in D5W 900 MG in Premix Bag 1 BAG IV SCH ×4 (13:11→20:44)
--- NOTE | 2019-02-10 17:12 | PCM.SN ---
- Free Text/Narrative Note: 1700 Patient states that her pain is slightly better this evening. Reports eating and drinking well. Has not been up and ambulating much. Reviewed plan to continue antibiotics overnight. Reassess labs in AM. Potential discharge tomorrow AM pending clinical course. She agrees. Stefanie Mendoza MD
[2019-02-10] MEDS ORDERED: Ampicillin/Sulbactam Na 3 GM in Sodium Chloride 0.9% 100 ML IV SCH (22:00)
[2019-02-10] MEDS: Ampicillin/Sulbactam Na 3 GM in Sodium Chloride 0.9% 100 ML IV SCH (23:30)
[2019-02-11] MEDS: Acetaminophen/oxyCODONE 325-5 MG Tab PO PRN ×3 (05:19→20:46)
[2019-02-11] MEDS: Ampicillin/Sulbactam Na 3 GM in Sodium Chloride 0.9% 100 ML IV SCH ×4 (05:20→22:18)
[2019-02-11] MEDS ORDERED: Gentamicin 430 MG in Sodium Chloride 0.9% 100 ML IV ONE (06:00)
[2019-02-11] MEDS: Clindamycin Phosphate in D5W 900 MG in Premix Bag 1 BAG IV SCH ×6 (06:16→20:45)
--- NOTE | 2019-02-11 06:41 | PCM.PN ---
- General Info Date of Service: 02/11/19 Functional Status: Reports: Tolerating Diet, Ambulating (does ambulate halls when encouraged ), Urinating. Denies: New Symptoms - Review of Systems General: Reports: Malaise (improved from yesterday ) Pulmonary: Reports: Shortness of Breath (improving ) Cardiovascular: Reports: No Symptoms Gastrointestinal: Reports: Abdominal Pain (along incision ) Genitourinary: Reports: No Symptoms Musculoskeletal: Reports: Shoulder Pain (right sided ) Neurological: Reports: No Symptoms - Patient Data Vitals - Most Recent: Last Vital Signs Temp 36.9 C 02/11/19 05:26 Pulse 78 02/11/19 05:28 Resp 18 02/11/19 05:26 BP 129/84 02/11/19 05:26 Pulse Ox 100 02/11/19 05:28 Weight - Most Recent: 87.77 kg I&O - Last 24 Hours: Intake & Output 02/10/19 02/10/19 02/11/19 14:59 22:59 06:59 Intake Total 845 700 Balance 845 700 Lab Results Last 24 Hours: Laboratory Results - last 24 hr 02/11/19 02/11/19 Range/Units 04:35 04:35 WBC 9.37 (3.98-10.04) K/mm3 RBC 2.68 L (3.98-5.22) M/mm3 Hgb 8.3 L (11.2-15.7) gm/dl Hct 24.5 L (34.1-44.9) % MCV 91.4 (79.4-94.8) fl MCH 31.0 (25.6-32.2) pg MCHC 33.9 (32.2-35.5) g/dl RDW Std Deviation 40.4 (36.4-46.3) fL Plt Count 416 H D (182-369) K/mm3 MPV 8.8 L (9.4-12.3) fl Sodium 140 (136-145) mEq/L Potassium 4.3 (3.5-5.1) mEq/L Chloride 106 (98-107) mEq/L Carbon Dioxide 22 (21-32) mEq/L Anion Gap 16.3 H (5-15) BUN 14 (7-18) mg/dL Creatinine 0.6 (0.55-1.02) mg/dL Est Cr Clr Drug Dosing 120.63 mL/min Estimated GFR (MDRD) > 60 (>60) mL/min BUN/Creatinine Ratio 23.3 H (14-18) Glucose 105 (74-106) mg/dL Calcium 8.2 L (8.5-10.1) mg/dL Total Bilirubin 0.3 (0.2-1.0) mg/dL AST 9 L (15-37) U/L ALT 12 L (14-59) U/L Alkaline Phosphatase 77 (46-116) U/L Total Protein 6.2 L (6.4-8.2) g/dl Albumin 2.0 L (3.4-5.0) g/dl Globulin 4.2 gm/dL Albumin/Globulin Ratio 0.5 L (1-2) K[place]hawn Results Last 24 Hours: Microbiology 02/10/19 21:35 Anaerobic Blood Culture - Final Blood - Venous Med Orders - Current: Current Medications Acetaminophen (Tylenol) 975 mg PO Q4H PRN PRN Reason: Pain/Fever Last Admin: 02/10/19 20:42 Dose: 975 mg Cyclobenzaprine HCl (Flexeril) 10 mg PO TID PRN PRN Reason: Pain Last Admin: 02/10/19 17:44 Dose: 10 mg Clindamycin Phosphate 900 mg/ (Premix) 50 mls @ 94.34 mls/hr IV Q8H [facility] Last Admin: 02/11/19 06:16 Dose: 94.34 mls/hr Ampicillin Sodium/Sulbactam (Sodium 3 gm/ Sodium Chloride) 100 mls @ 200 mls/ hr IV Q6H [facility] Last Admin: 02/11/19 05:20 Dose: 200 mls/hr Ondansetron HCl (Zofran) 4 mg IVPUSH Q6H PRN PRN Reason: Nausea/Vomiting Oxycodone/Acetaminophen (Percocet 325-5 Mg) 1 - 2 tab PO Q6H PRN PRN Reason: Abdominal Pain Last Admin: 02/11/19 05:19 Dose: 2 tab Simethicone (Simethicone) 80 mg PO Q4H PRN PRN Reason: Gas Last Admin: 02/10/19 21:05 Dose: 80 mg Sodium Chloride (Saline Flush) 10 ml FLUSH ASDIRECTED PRN PRN Reason: Keep Vein Open Discontinued Medications Diatrizoate Meglum/Diatrizoate Sod (Gastrografin 37%) 90 ml PO ONETIME ONE Stop: 02/10/19 01:09 Last Admin: 02/10/19 01:26 Dose: 90 ml Gentamicin Sulfate (Gentamicin) Confirm Administered Dose 80 mg .ROUTE .STK-MED ONE Stop: 02/10/19 05:43 Last Admin: 02/10/19 19:47 Dose: Not Given Hydromorphone HCl (Dilaudid) 1 mg IVPUSH ONETIME ONE Stop: 02/09/19 23:49 Last Admin: 02/10/19 00:05 Dose: 1 mg Hydromorphone HCl (Dilaudid) 0.5 mg IVPUSH ONETIME ONE Stop: 02/10/19 03:21 Last Admin: 02/10/19 03:31 Dose: 0.5 mg Hydromorphone HCl (Dilaudid) 0.5 mg IVPUSH Q2H PRN PRN Reason: Pain (severe 7-10) Last Admin: 02/10/19 06:06 Dose: 0.5 mg Sodium Chloride (Normal Saline) 1,000 mls @ 1,000 mls/hr IV .BOLUS STA Stop: 02/10/19 00:45 Last Admin: 02/10/19 00:03 Dose: 1,000 mls/hr Clindamycin Phosphate 900 mg/ (Sodium Chloride) 106 mls @ 200 mls/hr IV ONETIME ONE Stop: 02/10/19 04:29 Last Admin: 02/10/19 04:15 Dose: 200 mls/hr Gentamicin Sulfate 430 mg/ (Sodium Chloride) 110.75 mls @ 200 mls/hr IV ONETIME ONE Stop: 02/10/19 04:32 Last Admin: 02/10/19 06:03 Dose: 200 mls/hr Sodium Chloride (Normal Saline) Confirm Administered Dose 100 mls @ as directed .ROUTE .STK-MED ONE Stop: 02/10/19 04:07 Last Admin: 02/10/19 07:37 Dose: Not Given Gentamicin Sulfate 430 mg/ (Sodium Chloride) 110.75 mls @ 200 mls/hr IV ONETIME ONE Stop: 02/11/19 06:33 Last Admin: 02/11/19 06:16 Dose: 200 mls/hr Iopamidol (Isovue-300 (61%)) 100 ml IVPUSH ONETIME ONE Stop: 02/10/19 01:09 Last Admin: 02/10/19 01:26 Dose: 100 ml Ketorolac Tromethamine (Toradol) 30 mg IVPUSH Q6H SONIA Stop: 02/10/19 19:01 Last Admin: 02/10/19 20:43 Dose: 30 mg Ondansetron HCl (Zofran) 4 mg IVPUSH ONETIME ONE Stop: 02/09/19 23:47 Last Admin: 02/10/19 00:04 Dose: 4 mg Sodium Chloride (Saline Flush) 10 ml FLUSH ASDIRECTED PRN PRN Reason: Keep Vein Open Last Admin: 02/10/19 01:26 Dose: 10 ml - Exam General: Alert, Oriented, Cooperative Lungs: Clear to Auscultation (clear throughout left lung lobo ), Normal Respiratory Effort, Decreased Breath Sounds (Right lower base ) Cardiovascular: Regular Rate, Regular Rhythm GI/Abdominal Exam: Soft, Tender (appropriate post op, less tenderness with fundal pressure ) Extremities: Normal Inspection. No: Pedal Edema Skin: Warm, Dry, Intact Wound/Incisions: Healing Well, No Drainage - Problem List & Annotations (1) Abdominal pain SNOMED Code(s): 76823435 Code(s): R10.9 - UNSPECIFIED ABDOMINAL PAIN Status: Acute Current Visit: Yes Qualifiers: Abdominal location: right lower quadrant Qualified Code(s): R10.31 - Right lower quadrant pain (2) Leukocytosis SNOMED Code(s): 013600896, 475033661 Code(s): D72.829 - ELEVATED WHITE BLOOD CELL COUNT, UNSPECIFIED Status: Acute Current Visit: Yes Qualifiers: Leukocytosis type: unspecified Qualified Code(s): D72.829 - Elevated white blood cell count, unspecified (3) S/P primary low transverse SNOMED Code(s): 749051400, 53424048, 841864197, 848767151, 851183409 Code(s): Z98.891 - HISTORY OF UTERINE SCAR FROM PREVIOUS SURGERY Status: Acute Current Visit: No - Problem List Review Problem List Initiated/Reviewed/Updated: Yes - My Orders Last 24 Hours: My Active Orders 02/10/19 06:53 Acetaminophen/oxyCODONE [Percocet 325-5 MG] 1 - 2 tab PO Q6H PRN Cyclobenzaprine [Flexeril] 10 mg PO TID PRN Simethicone 80 mg PO Q4H PRN 02/10/19 12:00 Clindamycin Phosphate in D5W [Cleocin in D5W] 900 mg Premix Bag 1 bag IV Q8H 02/10/19 14:44 Heat Therapy [OM.PC] Routine 02/10/19 17:18 Incentive Spirometry [RT Incentive Spirometry] [RC] Q2HWA 02/10/19 17:19 Ambulate [RC] ASDIRECTED 02/10/19 21:00 Blood Culture x2 Reflex Set [OM.PC] Stat 02/10/19 21:30 CULTURE BLOOD [BC] Stat 02/10/19 21:35 CULTURE BLOOD [BC] Stat 02/10/19 21:58 Antiembolic Devices [RC] BID SCD [Sequential Compression Device] [OM.PC] Routine 02/10/19 22:00 Ampicillin/Sulbactam Na [Unasyn] 3 gm Sodium Chloride 0.9% [Normal Saline] 100 ml IV Q6H 02/10/19 22:01 Chest 1V Frontal [CR] Stat 02/10/19 Breakfast Regular Diet [DIET] - Assessment Assessment:: 23 y/o POD#10/HD#2 admitted for concerns of post op/ endometritis - Plan Plan:: * Patient with fever last night around 2100 * Blood cultures collected around time of fever * Was on Gent and Clinda from time of admission to ER. With fever last night Amp/Sulbactam started as well (was GBS negative, however, coverage felt needed to be expanded). Plan on keeping on antibiotics in house until at least 24 hours afebrile. Will tentatively plan on discharging on Augmentin * Repeat labs this AM with improvement in WBC. Will repeat again tomorrow AM. * O2 Requirement * Last night around fever had increasing O2 requirement. CXR preliminary read shows "small amount of air space disease in right base could be a pneumonia". When patient is instructed in incentive spirometry this AM and observed patient performing was able to increase performance to 400 up to 1,000. Again instructed on frequent use and ambulating frequently. After incentive spirometry patient able to maintain O2 saturations without supplemental oxygen. Will not adjust regimen of antibiotics at this time, however, will continue to monitor closely * Ibuprofen, Flexeril, percocet PRN * General diet * Possible discharge tomorrow, 02/12, pending clinical course
[2019-02-11] MEDS: Ibuprofen 600 MG Tab PO PRN (15:05)
[2019-02-12] MEDS: Clindamycin Phosphate in D5W 900 MG in Premix Bag 1 BAG IV SCH ×2 (04:36)
[2019-02-12] MEDS: Ampicillin/Sulbactam Na 3 GM in Sodium Chloride 0.9% 100 ML IV SCH (04:36)
[2019-02-12] MEDS: Acetaminophen/oxyCODONE 325-5 MG Tab PO PRN (04:53)
[2019-02-12] MEDS ORDERED: Gentamicin 430 MG in Sodium Chloride 0.9% 100 ML IV ONE (06:00)
[2019-02-12] MEDS ORDERED: Simethicone 80 MG Tab.Chew PO ONE (09:00)
[2019-02-12] MEDS: Amoxicillin/Clavulanate K 875-125 MG Tab PO SCH ×3 (09:30→17:36)
[2019-02-12] MEDS: Simethicone 80 MG Tab.Chew PO SCH ×2 (10:07→17:36)
[2019-02-12] MEDS: traMADol 50 MG Tab PO PRN ×2 (10:08→18:17)
--- NOTE | 2019-02-12 10:11 | PCM.SN ---
- Free Text/Narrative Note: Hospital day #4: Patient still reports pain. Right-sided abdomen. Some shoulder pain noted. She has had normal bowel movements on a daily basis. Her appetite is fair. She denies any fever or chills. Has had some discomfort with urination but this is improving. No problems with urination. No significant abnormal vaginal bleeding or discharge noted. Patient is afebrile, vital signs are stable. General patient is well-developed, well-nourished, pleasant female in mild distress secondary to pain. She is lying in bed. Nurse reports she has not been real actively ambulating. Breath sounds in all lung lobo. Cardiovascular exam shows regular rate and rhythm without murmurs. Abdomen is soft, is tender with deep palpation in the right side. No CVA tenderness noted. Uterus is at the umbilicus. Incision appears to be healing well. Legs show minimal edema bilateral lower portion but no tenderness or pain noted. White blood count is down to 8.41. Hemoglobin is increased from 8.2 date 7 hematocrit 26.1. Platelets are 478,000. Assessment: 1. Pain, history of infection status post done on 02/01/2019-suspected endomyometritispatient has been on triple antibiotics. She is on her fourth day of IV antibiotics. Has been on triple antibiotics for at least to those days. No etiology of her pain is identified at this time. 2. White count is improved, last CMP is normal. Plan: 1. Will initiate tramadol therapy. 2. Will discontinue Triple Antibiotic since patient been afebrile for almost 48 hours. We'll initiate Augmentin therapy 875 mg by mouth 3 times a day. 3. Simethicone 160 mg by mouth scheduled every 8 hours 4. DVT prophylaxis with SCDs while in bed 5. Increase ambulation to at least every 2 hours 6. Incentive spirometry to be continued. 7. If patient remains afebrile we'll discharge home tomorrow.
[2019-02-12] MEDS: Ibuprofen 600 MG Tab PO PRN ×2 (13:41→21:41)
[2019-02-12] MEDS: Cyclobenzaprine 10 MG Tab PO PRN (22:06)
[2019-02-13] MEDS: Simethicone 80 MG Tab.Chew PO SCH ×3 (04:09→09:00)
--- NOTE | 2019-02-13 07:14 | PCM.DCSUM1 ---
Discharge Summary - Hospital Course Free Text/Narrative:: Patient is a 23 y/o woman who was admitted on 02/10/2019 on POD#9 from [facility] for FTP. Had been feeling well until a few days prior to admission when she began noting increasing abdominal pain on her right and general feelings of being unwell. [facility] at [facility] as [facility]. Was seen in ED where labs showed an elevated WBC and CT scan was normal. Exam concerning for endometritis and so admitted. Patient is admitted, evaluated found to have an elevated white blood count of 16,000+. She was started on antibiotics including clindamycin and gentamicin. Only finding was her group B strep positive status. CT was done showing no significant apparent abnormality. After approximately 1 day she was treated additionally with ampicillin for triple antibiotic regimen. She is continued on this and found that discomfort improved and temperature resolved and her white count is now decreased to normal. Working diagnosis was endomyometritis status post primary low uterine segment transverse section. On 02/12/2019 patient was augmented 875 mg by mouth 3 times a day. She has maintained normal temperature and vital signs. Pain is continued improvement. It is felt that she is ready for discharge home on antibiotics. Diagnosis: Stroke: No - Discharge Data Discharge Date: 02/13/19 Discharge Disposition: Home, Self-Care 01 Condition: Good - Referral to Home Health Primary Care Physician: PCP None - Patient Instructions Diet: Regular Diet as Tolerated Activity: As Tolerated Driving: Do Not Drive Showering/Bathing: May Shower Wound/Incision Care: Keep Operative Site/Wound Site Clean and Dry Notify Provider of: Fever, Increased Pain, Swelling and Redness, Drainage, Nausea and/or Vomiting - Discharge Plan Home Medications: Home Meds Acetaminophen [Tylenol] 650 mg PO Q4H PRN #60 tablet 02/03/19 [Rx] Ibuprofen [Motrin] 600 mg PO Q6H PRN #60 tablet 02/03/19 [Rx] Benzocaine [Orajel Regular Strength] 1 appful TOP TID PRN 02/10/19 [History] Docusate Sodium [Colace] 100 mg PO Q12HR PRN 02/10/19 [History] Acetaminophen [Tylenol] 975 mg PO Q4H PRN tablet 02/13/19 [Rx] Amoxicillin/Clavulanate K [Augmentin 875-125 MG] 1 tab PO TID@0800,1200,1700 tablet 02/13/19 [Rx] Ibuprofen [Motrin] 600 mg PO Q6H PRN tablet 02/13/19 [Rx] traMADol [Ultram] 50 mg PO Q8H PRN tablet 02/13/19 [Rx] Forms: ED Department Discharge Referrals: PCP,Unknown [Ordering Only Provider] - - Discharge Summary/Plan Comment DC Time >30 min.: No Discharge Summary/Plan Comment: Discharge instructions: 1. Discharge home 2. Diet, activity and follow-up discussed with patient. 3. Precautions given concern increased pain, bleeding, temperature, signs/ symptoms of DVT/PE. 4. Medications per home medication was printed, discussed with and given to the patient. 5. Return to clinic-Dr. Mendoza at [facility] in 2 weeks. Diagnosis: 1. Post operative endomyometritis status post on 02/01/2018 Condition: Good - Patient Data Vitals - Most Recent: Last Vital Signs Temp 37.1 C 02/12/19 21:53 Pulse 95 02/12/19 21:53 Resp 18 02/12/19 21:53 BP 148/88 H 02/12/19 21:53 Pulse Ox 98 02/12/19 21:53 Weight - Most Recent: 88.949 kg I&O - Last 24 hours: Intake & Output 02/12/19 02/13/19 02/13/19 22:59 06:59 14:59 Intake Total 440 Balance 440 JELLY Results - Last 24 hrs: Microbiology 02/10/19 21:35 Aerobic Blood Culture - Preliminary Blood - Venous NO GROWTH AFTER 2 DAYS Anaerobic Blood Culture - Final 02/10/19 21:30 Aerobic Blood Culture - Preliminary Blood - Venous - Lab Draw NO GROWTH AFTER 2 DAYS Anaerobic Blood Culture - Preliminary NO GROWTH AFTER 2 DAYS Med Orders - Current: Current Medications Acetaminophen (Tylenol) 975 mg PO Q4H PRN PRN Reason: Pain/Fever Last Admin: 02/10/19 20:42 Dose: 975 mg Amoxicillin/Clavulanate Potassium (Augmentin 875 Mg/125 Mg) 1 tab PO TID@0800, 1200,1700 SONIA Last Admin: 02/12/19 17:36 Dose: 1 tab Cyclobenzaprine HCl (Flexeril) 10 mg PO TID PRN PRN Reason: Pain Last Admin: 02/12/19 22:06 Dose: 10 mg Ibuprofen (Motrin) 600 mg PO Q6H PRN PRN Reason: Pain Last Admin: 02/12/19 21:41 Dose: 600 mg Ondansetron HCl (Zofran) 4 mg IVPUSH Q6H PRN PRN Reason: Nausea/Vomiting Simethicone (Simethicone) 160 mg PO Q8H SONIA Last Admin: 02/13/19 04:55 Dose: 160 mg Sodium Chloride (Saline Flush) 10 ml FLUSH ASDIRECTED PRN PRN Reason: Keep Vein Open Tramadol HCl (Ultram) 50 mg PO Q8H PRN PRN Reason: pain Last Admin: 02/12/19 18:17 Dose: 50 mg Discontinued Medications Diatrizoate Meglum/Diatrizoate Sod (Gastrografin 37%) 90 ml PO ONETIME ONE Stop: 02/10/19 01:09 Last Admin: 02/10/19 01:26 Dose: 90 ml Gentamicin Sulfate (Gentamicin) Confirm Administered Dose 80 mg .ROUTE .STK-MED ONE Stop: 02/10/19 05:43 Last Admin: 02/10/19 19:47 Dose: Not Given Hydromorphone HCl (Dilaudid) 1 mg IVPUSH ONETIME ONE Stop: 02/09/19 23:49 Last Admin: 02/10/19 00:05 Dose: 1 mg Hydromorphone HCl (Dilaudid) 0.5 mg IVPUSH ONETIME ONE Stop: 02/10/19 03:21 Last Admin: 02/10/19 03:31 Dose: 0.5 mg Hydromorphone HCl (Dilaudid) 0.5 mg IVPUSH Q2H PRN PRN Reason: Pain (severe 7-10) Last Admin: 02/10/19 06:06 Dose: 0.5 mg Sodium Chloride (Normal Saline) 1,000 mls @ 1,000 mls/hr IV .BOLUS STA Stop: 02/10/19 00:45 Last Admin: 02/10/19 00:03 Dose: 1,000 mls/hr Clindamycin Phosphate 900 mg/ (Sodium Chloride) 106 mls @ 200 mls/hr IV ONETIME ONE Stop: 02/10/19 04:29 Last Admin: 02/10/19 04:15 Dose: 200 mls/hr Gentamicin Sulfate 430 mg/ (Sodium Chloride) 110.75 mls @ 200 mls/hr IV ONETIME ONE Stop: 02/10/19 04:32 Last Admin: 02/10/19 06:03 Dose: 200 mls/hr Sodium Chloride (Normal Saline) Confirm Administered Dose 100 mls @ as directed .ROUTE .STK-MED ONE Stop: 02/10/19 04:07 Last Admin: 02/10/19 07:37 Dose: Not Given Clindamycin Phosphate 900 mg/ (Premix) 50 mls @ 94.34 mls/hr IV Q8H [facility] Last Admin: 02/12/19 04:36 Dose: 94.34 mls/hr Gentamicin Sulfate 430 mg/ (Sodium Chloride) 110.75 mls @ 200 mls/hr IV ONETIME ONE Stop: 02/11/19 06:33 Last Admin: 02/11/19 06:16 Dose: 200 mls/hr Ampicillin Sodium/Sulbactam (Sodium 3 gm/ Sodium Chloride) 100 mls @ 200 mls/ hr IV Q6H [facility] Last Admin: 02/12/19 04:36 Dose: 200 mls/hr Gentamicin Sulfate 430 mg/ (Sodium Chloride) 110.75 mls @ 200 mls/hr IV ONETIME ONE Stop: 02/12/19 06:33 Last Admin: 02/12/19 05:23 Dose: 200 mls/hr Iopamidol (Isovue-300 (61%)) 100 ml IVPUSH ONETIME ONE Stop: 02/10/19 01:09 Last Admin: 02/10/19 01:26 Dose: 100 ml Ketorolac Tromethamine (Toradol) 30 mg IVPUSH Q6H SONIA Stop: 02/10/19 19:01 Last Admin: 02/10/19 20:43 Dose: 30 mg Ondansetron HCl (Zofran) 4 mg IVPUSH ONETIME ONE Stop: 02/09/19 23:47 Last Admin: 02/10/19 00:04 Dose: 4 mg Oxycodone/Acetaminophen (Percocet 325-5 Mg) 1 - 2 tab PO Q6H PRN PRN Reason: Abdominal Pain Last Admin: 02/12/19 04:53 Dose: 2 tab Simethicone (Simethicone) 80 mg PO Q4H PRN PRN Reason: Gas Last Admin: 02/10/19 21:05 Dose: 80 mg Simethicone (Simethicone) 160 mg PO ONETIME ONE Stop: 02/12/19 09:01 Last Admin: 02/12/19 09:29 Dose: 160 mg Sodium Chloride (Saline Flush) 10 ml FLUSH ASDIRECTED PRN PRN Reason: Keep Vein Open Last Admin: 02/10/19 01:26 Dose: 10 ml
[2019-02-13] MEDS: Ibuprofen 600 MG Tab PO PRN (08:54)
[2019-02-13] MEDS: Amoxicillin/Clavulanate K 875-125 MG Tab PO SCH ×2 (08:54→13:24)
--- NOTE | 2019-02-14 06:30 | CR ---
Chest: Frontal view of the chest was obtained. Comparison: No prior chest imaging. Minimal density adjacent of the right hemidiaphragm is seen. Lungs otherwise are clear. Heart size and mediastinum are normal. Bony structures are unremarkable. Impression: 1. Minimal density adjacent to the right hemidiaphragm either due to atelectasis or minimal area of pneumonia. 2. Frontal chest x-ray is otherwise unremarkable. Diagnostic code #3 I agree with preliminary report from [facility], finalized on 02/10/19, 11:20 PM Central Time
== END 2019-02-13 11:05 | disposition home or self-care (01) | DRG 776 ==
LOC: JD.ED 23:23 → JD.MS 02-10 04:06 → OBSVTOIN 02-10 04:06 → JD.MS 02-10 04:07
PROVIDERS: ADMIT Emergency Medicine; ATTEND Obstetrics & Gynecology
DX: O86.12 Endometritis following delivery (principal); Z87.891 Personal history of nicotine dependence
CPT/HCPCS: 36415; 71045; 71045-26; 74177; 74177-26; 80053; 81001; 83690; 85025; 85027; 87040; 87070; 87641; 96361; 96374; 96375; 96376; 99285-25; A9270-GY; J0295; J1170; J1580; J1885; J2405; J3490; J7030; J7040; Q9963; Q9967